=== PATIENT | male | born 1975 | race African-American/Black ===

== ENCOUNTER 2017-01-26 15:20 | Inpatient (IN) | payer OTHER ==
[~2017-01-26] VITALS: Ht 180.3 cm; Wt 116.7 kg
[~2017-01-26 15:20] MED LIST: AMLODIPINE BESY10 MG PO; AMOX TR-K CLV1 EAC3 PO; AMOX TR-K CLV1 EAC4 PO; ANTIVERT25 MG PO; ASPIR 8181 M1 PO; ATORVASTATIN CA40 MG PO; Augmentin PO; BACTRIM,SEPT1 TABLET PO; BENTYL10 MG PO; CIPRO500 MG PO; CLEOCIN150 MG PO; CLEOCIN300 MG PO; DAILY VALUE1 EACH PO; DAILY VITE1 EAC1 PO; FAMOTIDINE20 MG PO; GABAPENTIN100 MG PO; GLUCOPHAGE1000 MG PO; GRALISE600 MG PO; HUMALOG100 UNIT/1 SC; HYDROCHLOROTHIA25 MG PO; HYDROMORPHONE HC2 MG PO; INSULIN PUMP SCCONT; LANTUS 10100 UNITS/ SC; LANTUS 3 M100 UNITS1 SC; LANTUS100 UNIT/1 SQ; LEVEMIR FL100 UNITS/ SC; LISINOPRIL10 MG PO; METFORMIN HCL500 MG PO; METOPROLOL TAR100 MG PO; METRONIDAZOLE500 MG PO; MOBIC15 MG PO; MOTRIN600 MG PO; NEURONTIN100 MG PO; NICOTINE PATCH1 EAC1 TD; NICOTINE PATCH1 EAC2 TD; NORCO 5/3251 TABLET PO; NOVOLOG PE100 UNITS/ SC; OMEPRAZOLE20 MG PO; ONE DAILY TABL1 EAC1 PO; OXYCODONE HCL5 MG PO; OXYCODONE5 MG PO; PREDNISONE10 MG PO; QUESTRAN PACKET4 GM PO; ROXICET 5-3251 EACH PO; ROXICODONE5 MG PO; TRAMADOL HCL50 MG PO; VITAMIN C1000 MG PO; Vantin PO; ZOLOFT100 MG PO; ZOLPIDEM TARTRAT5 MG PO; Zithromax PO
[2017-01-26 16:13] LABS: EOSINOPHIL (%) 0 % (0-5); HEMATOCRIT 30.2 % (38.0-50.0); IMMATURE GRANULOCYTE (%) 0.9 % (0.0-0.7); IMMATURE GRANULOCYTE COUNT 1.2 K/uL; MCH 29.1 PG (29.0-34.0); MCHC 30.8 G/DL (30.0-36.0); MCV 94.4 FL (86-99); MEAN PLAT.VOLUME 10.6 uM^3 (9.0-12.4); MONOCYTE (%) 4.7 % (3-12); MONOCYTE COUNT 0.7 K/uL (0-0.8); NEUTROPHIL (%) 87.6 % (45-76); NEUTROPHIL COUNT 12.3 K/uL (1.8-6.4); PLATELET COUNT 355 K/uL (156-360); RBC DIS.WIDTH-CV 15.3 % (11.8-14.6); RBC DIS.WIDTH-SD 49.5 % (39-53); WHITE BLOOD COUNT 14.1 K/uL (4.1-10.2)
[2017-01-26 16:22] LABS: CHLORIDE 89 mEq/L (99-109); POTASSIUM 4.9 mEq/L (3.7-5.4); SODIUM 125 mEq/L (136-147)
[2017-01-26 16:25] LABS: ANION GAP 26 MEQ/L (2-14)
[2017-01-26 16:26] LABS: TOTAL BILIRUBIN 0.3 mg/dL (0.0-1.0)
[2017-01-26 16:27] LABS: ALKALINE PHOSPHATASE 105 IU/L (3-129)
[2017-01-26 16:28] LABS: GFR ESTIMATE (CALCULATED) 27 mL/min/
[2017-01-26 16:29] LABS: UREA NITROGEN (BUN) 38 mg/dL (9-23)
[2017-01-26 16:31] LABS: LIPASE 28 U/L (1.0-51.0)
[2017-01-26 16:36] LABS: TROP-I INTERPRETATION NEGATIVE; TROPONIN-I 0.02 ng/mL (0.0-0.30)
[2017-01-26 16:53] LABS: GLUCOSE 1150 mg/dL (70-99)
[2017-01-26 17:49] LABS: Estimated Average Glucose 235 mg/dL (70-123); HEMOGLOBIN A1c (GLYCOHEMOGLOB) 9.8 % HGB (Below 5.7)
[2017-01-26 18:08] LABS: ADD MIUA? YES; BILIRUBIN NEGATIVE; BLOOD MODERATE; COLOR STRAW ((YELLOW)); GLUCOSE (STRIP) >=500; KETONES 20; LEUKOCYTES NEGATIVE; NITRITE NEGATIVE; PROTEIN (STRIP) >=500; UROBILINOGEN 0.2 MG/DL (0.2-1.0)
[2017-01-26 18:23] LABS: BACTERIA RARE /HPF; EPITHELIAL CELLS RARE /HPF; MUCUS TRACE /LPF; RED BLOOD CELLS 0-5 /HPF (0-5); WHITE BLOOD CELLS 0-5 /HPF (0-5)
[2017-01-26 19:13] LABS: C DIFF TOXIN NEGATIVE (NEGATIVE)
[2017-01-26 19:26] LABS: PROBE CHECK PASS; SPECIMEN PROCESSING CONTROL PASS
[2017-01-26 20:01] LABS: GLUCOSE 983 mg/dL (70-99)
[2017-01-26 20:50] VITALS: BP 164/84
[2017-01-26 20:54] VITALS: BP 164/84
[2017-01-26 21:15] VITALS: BP 161/80
[2017-01-26 22:45] VITALS: BP 173/86
[2017-01-26 22:46] LABS: METH RESISTANT S AUREUS PCR NEGATIVE (NEGATIVE)
[2017-01-26 22:47] LABS: PROBE CHECK PASS; SPECIMEN PROCESSING CONTROL PASS
[2017-01-26 23:06] LABS: AMPHETAMINES QUANT VALUE 0 NG/ML; BARBITUATES QUANT VALUE 0 NG/ML; BENZODIAZEPINES QUANT VALUE 0 NG/ML; BENZODIAZEPINES, URINE SCREEN Negative (200 ng/mL); MARIJUANA QUANT VALUE 0 NG/ML; OPIATES QUANTITATIVE VALUE 0 NG/ML; PHENCYCLIDINE QUANT VALUE 0 NG/ML
[2017-01-26 23:12] LABS: INFLUENZA A VIRAL ANTIGEN NEGATIVE; INFLUENZA B VIRAL ANTIGEN NEGATIVE
[2017-01-26 23:28] LABS: SODIUM 130 mEq/L (136-147)
[2017-01-26 23:29] LABS: MAGNESIUM 1.8 mg/dL (1.3-2.7)
[2017-01-26 23:32] LABS: ANION GAP 14 MEQ/L (2-14)
[2017-01-26 23:34] LABS: GFR ESTIMATE (CALCULATED) 28 mL/min/
[2017-01-26 23:35] LABS: UREA NITROGEN (BUN) 39 mg/dL (9-23)
[2017-01-26 23:36] LABS: CHLORIDE 98 mEq/L (99-109); GLUCOSE 767 mg/dL (70-99)
[2017-01-26 23:39] LABS: TROP-I INTERPRETATION NEGATIVE; TROPONIN-I 0.06 ng/mL (0.0-0.30)
[2017-01-26 23:40] VITALS: BP 154/72
[2017-01-27] VITALS (13 sets, daily range): BP systolic 126–172; BP diastolic 68–90
[2017-01-27 04:29] LABS: EOSINOPHIL (%) 1.3 % (0-5); EOSINOPHIL COUNT 0.2 K/uL (0-0.3); HEMATOCRIT 24.3 % (38.0-50.0); IMMATURE GRANULOCYTE (%) 0.2 % (0.0-0.7); IMMATURE GRANULOCYTE COUNT 0.3 K/uL; LYMPHOCYTE COUNT 1.2 K/uL (1.0-2.8); MCH 29.1 PG (29.0-34.0); MCHC 33.7 G/DL (30.0-36.0); MEAN PLAT.VOLUME 9.8 uM^3 (9.0-12.4); MONOCYTE (%) 6.2 % (3-12); NEUTROPHIL (%) 84.2 % (45-76); NEUTROPHIL COUNT 13.1 K/uL (1.8-6.4); PLATELET COUNT 323 K/uL (156-360); RBC DIS.WIDTH-SD 42.8 % (39-53); RED BLOOD COUNT 2.82 M/uL (4.00-5.50); WHITE BLOOD COUNT 15.6 K/uL (4.1-10.2)
[2017-01-27 04:33] LABS: MCV 86.2 FL (86-99)
[2017-01-27 04:40] LABS: CHLORIDE 103 mEq/L (99-109); POTASSIUM 3.7 mEq/L (3.7-5.4)
[2017-01-27 04:41] LABS: SODIUM 136 mEq/L (136-147)
[2017-01-27 04:42] LABS: GLUCOSE 392 mg/dL (70-99)
[2017-01-27 04:44] LABS: ANION GAP 10 MEQ/L (2-14)
[2017-01-27 04:46] LABS: GFR ESTIMATE (CALCULATED) 28 mL/min/
[2017-01-27 04:47] LABS: UREA NITROGEN (BUN) 38 mg/dL (9-23)
[2017-01-27 05:20] LABS: POINT-OF-CARE METER ID UU14162636
[2017-01-27 06:21] LABS: POINT-OF-CARE METER ID UU14162636
[2017-01-27 06:54] LABS: POINT-OF-CARE METER ID UU14162636
[2017-01-27 08:17] LABS: INTERNAL CONTROL VALID? YES
[2017-01-27 08:48] LABS: ANION GAP 8 MEQ/L (2-14); CHLORIDE 103 MEQ/L (99-109); POTASSIUM 3.7 MEQ/L (3.7-5.4); SAMPLE HEMOLYSIS CHECK 0; SAMPLE ICTERIC CHECK 0; SAMPLE LIPEMIA CHECK 0; SODIUM 137 MEQ/L (136-147)
[2017-01-27 08:54] LABS: GFR ESTIMATE (CALCULATED) 30 mL/min/; UREA NITROGEN (BUN) 36 mg/dL (9-23)
[2017-01-27 09:07] LABS: GLUCOSE 147 mg/dL (70-99)
[2017-01-27 09:25] LABS: POINT-OF-CARE METER ID UU13113803
[2017-01-27 09:25] LABS: POINT-OF-CARE METER ID UU14162636
[2017-01-27 09:25] LABS: POINT-OF-CARE METER ID UU14162636
[2017-01-27 09:32] LABS: POINT-OF-CARE METER ID UU14100415; POINT-OF-CARE USER ID PUTMLD10
[2017-01-27 12:05] LABS: POINT-OF-CARE METER ID UU13113748
[2017-01-27 12:49] LABS: HEMATOCRIT 24.7 % (38.0-50.0); MCV 86.7 FL (86-99)
[2017-01-27 13:07] LABS: ANION GAP 11 MEQ/L (2-14); CHLORIDE 102 MEQ/L (99-109); SAMPLE HEMOLYSIS CHECK 0; SAMPLE ICTERIC CHECK 0; SAMPLE LIPEMIA CHECK 0; SODIUM 137 MEQ/L (136-147)
[2017-01-27 13:12] LABS: GFR ESTIMATE (CALCULATED) 31 mL/min/; GLUCOSE 212 mg/dL (70-99); UREA NITROGEN (BUN) 34 mg/dL (9-23)
[2017-01-27 13:19] LABS: POINT-OF-CARE METER ID UU13113748
[2017-01-27 15:25] LABS: POINT-OF-CARE METER ID UU13113748
[2017-01-27 16:33] LABS: ANION GAP 11 MEQ/L (2-14); CHLORIDE 101 MEQ/L (99-109); GFR ESTIMATE (CALCULATED) 31 mL/min/; SAMPLE HEMOLYSIS CHECK 0; SAMPLE ICTERIC CHECK 0; SAMPLE LIPEMIA CHECK 0; SODIUM 135 MEQ/L (136-147); UREA NITROGEN (BUN) 35 mg/dL (9-23)
[2017-01-27 16:38] LABS: GLUCOSE 328 mg/dL (70-99)
[2017-01-27 20:37] LABS: ANION GAP 10 MEQ/L (2-14); CHLORIDE 103 MEQ/L (99-109); GFR ESTIMATE (CALCULATED) 29 mL/min/; GLUCOSE 297 mg/dL (70-99); POTASSIUM 3.9 MEQ/L (3.7-5.4); SAMPLE HEMOLYSIS CHECK 0; SAMPLE ICTERIC CHECK 0; SAMPLE LIPEMIA CHECK 0; SODIUM 134 MEQ/L (136-147); UREA NITROGEN (BUN) 36 mg/dL (9-23)
[2017-01-27 22:21] LABS: POINT-OF-CARE METER ID UU14149397
[2017-01-28] VITALS: BP 159/78
[2017-01-28 04:33] VITALS: BP 123/71
[2017-01-28 06:47] LABS: POINT-OF-CARE METER ID UU14149397
[2017-01-28 08:00] VITALS: BP 124/70
[2017-01-28 12:34] LABS: HEMATOCRIT 25.5 % (38.0-50.0); MCHC 32.9 G/DL (30.0-36.0); MCV 87.9 FL (86-99); MEAN PLAT.VOLUME 10.5 uM^3 (9.0-12.4); PLATELET COUNT 301 K/uL (156-360); RBC DIS.WIDTH-CV 14.9 % (11.8-14.6); RBC DIS.WIDTH-SD 48.1 % (39-53); WHITE BLOOD COUNT 10.8 K/uL (4.1-10.2)
[2017-01-28 12:55] LABS: ANION GAP 8 MEQ/L (2-14); CHLORIDE 104 MEQ/L (99-109); GFR ESTIMATE (CALCULATED) 30 mL/min/; GLUCOSE 215 mg/dL (70-99); HDL CHOLESTEROL 45 MG/DL (Desirable>=40); LDL CHOLESTEROL 73 mg/dL (Desirable<100); NON-HDL CHOLESTEROL 98 mg/dL (Desirable<160); POTASSIUM 3.9 MEQ/L (3.7-5.4); SAMPLE HEMOLYSIS CHECK 0; SAMPLE ICTERIC CHECK 0; SAMPLE LIPEMIA CHECK 0; SODIUM 138 MEQ/L (136-147); TOTAL CHOLESTEROL 143 mg/dL (Desirable<200); TRIGLYCERIDES 126 MG/DL (Normal: <150); UREA NITROGEN (BUN) 35 mg/dL (9-23)
[2017-01-28 15:45] VITALS: BP 133/69
[2017-01-28 19:59] VITALS: BP 161/78
[2017-01-28 21:45] LABS: POINT-OF-CARE METER ID UU14188577
[2017-01-29 00:23] VITALS: BP 167/84
[2017-01-29 04:13] VITALS: BP 190/98
[2017-01-29 06:03] LABS: ABSOLUTE RETICULOCYTE CT. 0.06 M/uL (0.02-0.08); EOSINOPHIL (%) 3.3 % (0-5); EOSINOPHIL COUNT 0.3 K/uL (0-0.3); HEMATOCRIT 25.4 % (38.0-50.0); IMM.RETIC FRACTION 7.2 % (3-19); IMMATURE GRANULOCYTE (%) 0.2 % (0.0-0.7); MCH 28.8 PG (29.0-34.0); MCHC 32.3 G/DL (30.0-36.0); MCV 89.1 FL (86-99); MEAN PLAT.VOLUME 10.4 uM^3 (9.0-12.4); MONOCYTE COUNT 0.7 K/uL (0-0.8); NEUTROPHIL (%) 67.9 % (45-76); NEUTROPHIL COUNT 6.4 K/uL (1.8-6.4); PLATELET COUNT 273 K/uL (156-360); RBC DIS.WIDTH-CV 15.2 % (11.8-14.6); RBC DIS.WIDTH-SD 49.7 % (39-53); RED BLOOD COUNT 2.85 M/uL (4.00-5.50); RETICULOCYTE COUNT 2.2 % (0.5-1.8); WHITE BLOOD COUNT 9.4 K/uL (4.1-10.2)
[2017-01-29 06:37] LABS: ANION GAP 7 MEQ/L (2-14); CHLORIDE 104 MEQ/L (99-109); GFR ESTIMATE (CALCULATED) 32 mL/min/; GLUCOSE 208 mg/dL (70-99); IRON 36 MCG/DL (35-150); POTASSIUM 3.7 MEQ/L (3.7-5.4); SAMPLE HEMOLYSIS CHECK 0; SAMPLE ICTERIC CHECK 0; SAMPLE LIPEMIA CHECK 0; SODIUM 137 MEQ/L (136-147); UREA NITROGEN (BUN) 33 mg/dL (9-23)
[2017-01-29 06:52] LABS: POINT-OF-CARE METER ID UU14149397
[2017-01-29 08:09] LABS: INTACT PARATHYROID HORMONE 99 pg/mL (10-69)
[2017-01-29 08:57] LABS: INTERNAL CONTROL VALID? YES
[2017-01-29 10:02] VITALS: BP 192/107
[2017-01-29 11:40] VITALS: BP 183/95
[2017-01-29 11:54] LABS: POINT-OF-CARE METER ID UU14188577
[2017-01-29 16:10] VITALS: BP 170/84
[2017-01-29 16:36] LABS: POINT-OF-CARE METER ID UU14149397
[2017-01-29 22:12] LABS: POINT-OF-CARE METER ID UU14149397
[2017-01-30] VITALS (7 sets, daily range): BP systolic 148–199; BP diastolic 68–96
[2017-01-30 05:40] LABS: EOSINOPHIL (%) 2.8 % (0-5); EOSINOPHIL COUNT 0.2 K/uL (0-0.3); HEMATOCRIT 26.9 % (38.0-50.0); IMMATURE GRANULOCYTE (%) 0.2 % (0.0-0.7); LYMPHOCYTE COUNT 1.7 K/uL (1.0-2.8); MCH 29.9 PG (29.0-34.0); MCHC 33.1 G/DL (30.0-36.0); MCV 90.3 FL (86-99); MEAN PLAT.VOLUME 10.4 uM^3 (9.0-12.4); MONOCYTE (%) 8.8 % (3-12); MONOCYTE COUNT 0.7 K/uL (0-0.8); NEUTROPHIL (%) 67.1 % (45-76); NEUTROPHIL COUNT 5.6 K/uL (1.8-6.4); PLATELET COUNT 278 K/uL (156-360); RBC DIS.WIDTH-CV 15.2 % (11.8-14.6); RBC DIS.WIDTH-SD 49.9 % (39-53); RED BLOOD COUNT 2.98 M/uL (4.00-5.50); WHITE BLOOD COUNT 8.3 K/uL (4.1-10.2)
[2017-01-30 06:04] LABS: ANION GAP 7 MEQ/L (2-14); CHLORIDE 104 MEQ/L (99-109); GFR ESTIMATE (CALCULATED) 39 mL/min/; GLUCOSE 240 mg/dL (70-99); POTASSIUM 3.8 MEQ/L (3.7-5.4); SAMPLE HEMOLYSIS CHECK 0; SAMPLE ICTERIC CHECK 0; SAMPLE LIPEMIA CHECK 0; SODIUM 140 MEQ/L (136-147); UREA NITROGEN (BUN) 28 mg/dL (9-23)
[2017-01-30 14:53] LABS: POINT-OF-CARE METER ID UU14149397
[2017-01-30 15:54] LABS: POINT-OF-CARE METER ID UU14149397
[2017-01-30 16:45] LABS: POINT-OF-CARE METER ID UU14149397
[2017-01-31 06:09] LABS: EOSINOPHIL COUNT 0.2 K/uL (0-0.3); HEMATOCRIT 26.7 % (38.0-50.0); IMMATURE GRANULOCYTE (%) 0.4 % (0.0-0.7); LYMPHOCYTE COUNT 2.3 K/uL (1.0-2.8); MCH 28.5 PG (29.0-34.0); MCHC 31.8 G/DL (30.0-36.0); MCV 89.6 FL (86-99); MEAN PLAT.VOLUME 10.5 uM^3 (9.0-12.4); MONOCYTE (%) 7.4 % (3-12); MONOCYTE COUNT 0.6 K/uL (0-0.8); NEUTROPHIL (%) 57.7 % (45-76); NEUTROPHIL COUNT 4.3 K/uL (1.8-6.4); PLATELET COUNT 293 K/uL (156-360); RBC DIS.WIDTH-CV 15.4 % (11.8-14.6); RBC DIS.WIDTH-SD 50.4 % (39-53); RED BLOOD COUNT 2.98 M/uL (4.00-5.50); WHITE BLOOD COUNT 7.4 K/uL (4.1-10.2)
[2017-01-31 06:28] LABS: ANION GAP 7 MEQ/L (2-14); CHLORIDE 104 MEQ/L (99-109); GFR ESTIMATE (CALCULATED) 39 mL/min/; GLUCOSE 151 mg/dL (70-99); POTASSIUM 3.9 MEQ/L (3.7-5.4); SAMPLE HEMOLYSIS CHECK 0; SAMPLE ICTERIC CHECK 0; SAMPLE LIPEMIA CHECK 0; SODIUM 141 MEQ/L (136-147); UREA NITROGEN (BUN) 25 mg/dL (9-23)
[2017-01-31 07:07] LABS: POINT-OF-CARE METER ID UU14188577
[2017-01-31 08:21] VITALS: BP 184/95
[2017-01-31 15:46] VITALS: BP 220/96
[2017-01-31 15:47] VITALS: BP 188/90
[2017-01-31 15:57] VITALS: BP 188/90
[2017-01-31 17:29] LABS: POINT-OF-CARE METER ID UU13113675; POINT-OF-CARE USER ID 515036437
[2017-01-31 18:48] LABS: UR CREATININE CONCENTRATION 39.8 MG/DL
[2017-01-31 20:01] VITALS: BP 162/82
[2017-01-31 22:15] LABS: POINT-OF-CARE METER ID UU14149397
[2017-02-01 00:29] VITALS: BP 116/60
[2017-02-01 04:08] VITALS: BP 116/75
[2017-02-01 05:38] LABS: HEMATOCRIT 24.9 % (38.0-50.0); MCHC 32.1 G/DL (30.0-36.0); MCV 90.2 FL (86-99); MEAN PLAT.VOLUME 10.5 uM^3 (9.0-12.4); PLATELET COUNT 301 K/uL (156-360); RBC DIS.WIDTH-CV 15.5 % (11.8-14.6); RBC DIS.WIDTH-SD 50.4 % (39-53); RED BLOOD COUNT 2.76 M/uL (4.00-5.50); WHITE BLOOD COUNT 8.9 K/uL (4.1-10.2)
[2017-02-01 06:13] LABS: ANION GAP 7 MEQ/L (2-14); CHLORIDE 103 MEQ/L (99-109); GFR ESTIMATE (CALCULATED) 35 mL/min/; POTASSIUM 4.1 MEQ/L (3.7-5.4); SAMPLE HEMOLYSIS CHECK 0; SAMPLE ICTERIC CHECK 0; SAMPLE LIPEMIA CHECK 0; SODIUM 138 MEQ/L (136-147); UREA NITROGEN (BUN) 28 mg/dL (9-23)
[2017-02-01 06:14] LABS: GLUCOSE 375 mg/dL (70-99)
[2017-02-01 08:17] VITALS: BP 156/81
[2017-02-01 10:54] LABS: POINT-OF-CARE METER ID UU14188577
[2017-02-01 11:41] VITALS: BP 172/91
[2017-02-01 16:39] VITALS: BP 129/70
[2017-02-01 23:19] LABS: POINT-OF-CARE METER ID UU14188577
[2017-02-01 23:31] VITALS: BP 162/90
[2017-02-02 05:30] LABS: HEMATOCRIT 25.1 % (38.0-50.0); MCH 28.3 PG (29.0-34.0); MCHC 31.5 G/DL (30.0-36.0); MEAN PLAT.VOLUME 10.5 uM^3 (9.0-12.4); PLATELET COUNT 320 K/uL (156-360); RBC DIS.WIDTH-CV 15.5 % (11.8-14.6); RBC DIS.WIDTH-SD 50.7 % (39-53); RED BLOOD COUNT 2.79 M/uL (4.00-5.50); WHITE BLOOD COUNT 8.4 K/uL (4.1-10.2)
[2017-02-02 05:53] LABS: ANION GAP 6 MEQ/L (2-14); ANION GAP 8 MEQ/L (2-14); CHLORIDE 102 MEQ/L (99-109); GFR ESTIMATE (CALCULATED) 34 mL/min/; GLUCOSE 262 mg/dL (70-99); GLUCOSE 268 mg/dL (70-99); POTASSIUM 3.8 MEQ/L (3.7-5.4); SAMPLE HEMOLYSIS CHECK 0; SAMPLE ICTERIC CHECK 0; SAMPLE LIPEMIA CHECK 0; SODIUM 135 MEQ/L (136-147); SODIUM 137 MEQ/L (136-147); UREA NITROGEN (BUN) 28 mg/dL (9-23); UREA NITROGEN (BUN) 29 mg/dL (9-23)
[2017-02-02 08:13] VITALS: BP 180/100
[2017-02-02 09:35] VITALS: BP 174/80
[2017-02-02 11:55] LABS: POINT-OF-CARE METER ID UU14149397
[2017-02-02 17:03] VITALS: BP 139/70
[2017-02-02 21:52] LABS: POINT-OF-CARE METER ID UU14149397
[2017-02-03 00:15] VITALS: BP 143/67
[2017-02-03 06:46] LABS: ANION GAP 7 MEQ/L (2-14); CHLORIDE 105 MEQ/L (99-109); GFR ESTIMATE (CALCULATED) 39 mL/min/; POTASSIUM 3.4 MEQ/L (3.7-5.4); SAMPLE HEMOLYSIS CHECK 0; SAMPLE ICTERIC CHECK 0; SAMPLE LIPEMIA CHECK 0; SODIUM 139 MEQ/L (136-147); UREA NITROGEN (BUN) 25 mg/dL (9-23)
[2017-02-03 06:58] LABS: GLUCOSE 133 mg/dL (70-99)
[2017-02-03 08:14] VITALS: BP 176/94
[2017-02-03 08:43] LABS: HEMATOCRIT 26.4 % (38.0-50.0); MCHC 31.8 G/DL (30.0-36.0); MEAN PLAT.VOLUME 10.3 uM^3 (9.0-12.4); PLATELET COUNT 330 K/uL (156-360); RBC DIS.WIDTH-CV 15.5 % (11.8-14.6); RBC DIS.WIDTH-SD 51.1 % (39-53); WHITE BLOOD COUNT 6.7 K/uL (4.1-10.2)
[2017-02-03 11:45] LABS: POINT-OF-CARE METER ID UU14149397; POINT-OF-CARE USER ID BHSLRM
[2017-02-03 11:58] LABS: UR CREATININE CONCENTRATION 74.9 MG/DL
[2017-02-03 14:53] VITALS: BP 160/74
[2017-02-03 17:33] LABS: POINT-OF-CARE METER ID UU14149397
[2017-02-03 22:37] LABS: POINT-OF-CARE METER ID UU14149397
[2017-02-03 23:49] VITALS: BP 135/78
[2017-02-04 06:38] LABS: ANION GAP 6 MEQ/L (2-14); CHLORIDE 102 MEQ/L (99-109); GFR ESTIMATE (CALCULATED) 39 mL/min/; GLUCOSE 119 mg/dL (70-99); POTASSIUM 3.6 MEQ/L (3.7-5.4); SAMPLE HEMOLYSIS CHECK 0; SAMPLE ICTERIC CHECK 0; SAMPLE LIPEMIA CHECK 0; SODIUM 138 MEQ/L (136-147); UREA NITROGEN (BUN) 27 mg/dL (9-23)
[2017-02-04 06:51] LABS: POINT-OF-CARE METER ID UU14188577
[2017-02-04 07:06] VITALS: BP 138/73
[2017-02-04 08:32] LABS: HEMATOCRIT 25.4 % (38.0-50.0); MCH 29.5 PG (29.0-34.0); MCHC 32.3 G/DL (30.0-36.0); MCV 91.4 FL (86-99); MEAN PLAT.VOLUME 10.4 uM^3 (9.0-12.4); PLATELET COUNT 355 K/uL (156-360); RBC DIS.WIDTH-CV 15.6 % (11.8-14.6); RBC DIS.WIDTH-SD 52.3 % (39-53); RED BLOOD COUNT 2.78 M/uL (4.00-5.50); WHITE BLOOD COUNT 6.9 K/uL (4.1-10.2)
[2017-02-04 12:02] LABS: POINT-OF-CARE METER ID UU14149397
[2017-02-04 17:02] LABS: POINT-OF-CARE METER ID UU14149397
[2017-02-05 00:13] VITALS: BP 157/83
[2017-02-05 06:43] LABS: ANION GAP 7 MEQ/L (2-14); CHLORIDE 100 MEQ/L (99-109); GFR ESTIMATE (CALCULATED) 41 mL/min/; POTASSIUM 4.2 MEQ/L (3.7-5.4); SAMPLE HEMOLYSIS CHECK 0; SAMPLE ICTERIC CHECK 0; SAMPLE LIPEMIA CHECK 0; SODIUM 136 MEQ/L (136-147); UREA NITROGEN (BUN) 27 mg/dL (9-23)
[2017-02-05 06:45] LABS: GLUCOSE 269 mg/dL (70-99)
[2017-02-05 07:12] LABS: POINT-OF-CARE METER ID UU14149397
[2017-02-05 08:42] VITALS: BP 173/87
[2017-02-05] MEDS ORDERED: SORE THROAT LO1 EAC3 MM (13:09)
[2017-02-05] MEDS ORDERED: CARVEDILOL12.5 MG PO (13:42)
[2017-02-05] MEDS ORDERED: OXYCODONE-APAP1 EACH PO (13:42)
[2017-02-05] MEDS ORDERED: ENDOCET 5-3251 EACH PO (13:42)
[2017-02-05] MEDS ORDERED: Procardia XL,Adalat PO (13:42)
[2017-02-05] MEDS ORDERED: VENTOLIN HFA18 GM IH (13:42)
[2017-02-05] MEDS ORDERED: PREDNISONE10 MG PO (13:42)
[2017-02-05] MEDS ORDERED: NICOTINE PATCH1 EAC2 TD (13:45)
[2017-02-05 16:37] VITALS: BP 140/77
[2017-02-05 23:45] VITALS: BP 132/60
[2017-02-06 06:15] LABS: ANION GAP 7 MEQ/L (2-14); CHLORIDE 97 MEQ/L (99-109); GFR ESTIMATE (CALCULATED) 37 mL/min/; GLUCOSE 358 mg/dL (70-99); POTASSIUM 3.9 MEQ/L (3.7-5.4); SAMPLE HEMOLYSIS CHECK 0; SAMPLE ICTERIC CHECK 0; SAMPLE LIPEMIA CHECK 0; SODIUM 132 MEQ/L (136-147); UREA NITROGEN (BUN) 34 mg/dL (9-23)
[2017-02-06 06:20] LABS: POINT-OF-CARE METER ID UU14149397
[2017-02-06 07:59] VITALS: BP 107/58
[2017-02-06 10:31] LABS: HEMATOCRIT 27.2 % (38.0-50.0); MCH 28.8 PG (29.0-34.0); MCHC 31.6 G/DL (30.0-36.0); PLATELET COUNT 346 K/uL (156-360); RBC DIS.WIDTH-CV 15.7 % (11.8-14.6); RBC DIS.WIDTH-SD 51.8 % (39-53); RED BLOOD COUNT 2.99 M/uL (4.00-5.50)
[2017-02-06 10:41] LABS: WHITE BLOOD COUNT 11.1 K/uL (4.1-10.2)
[2017-02-06 11:34] LABS: ANION GAP 11 MEQ/L (2-14); CHLORIDE 97 MEQ/L (99-109); GFR ESTIMATE (CALCULATED) 32 mL/min/; POTASSIUM 3.9 MEQ/L (3.7-5.4); SAMPLE HEMOLYSIS CHECK 0; SAMPLE ICTERIC CHECK 0; SAMPLE LIPEMIA CHECK 0; SODIUM 133 MEQ/L (136-147); UREA NITROGEN (BUN) 36 mg/dL (9-23)
[2017-02-06 11:37] LABS: GLUCOSE 412 mg/dL (70-99)
[2017-02-06 11:53] LABS: POINT-OF-CARE METER ID UU14188577
[2017-02-06] MEDS ORDERED: LISINOPRIL20 MG PO (13:39)
[2017-02-06] MEDS ORDERED: METOCLOPRAMIDE H5 MG PO (13:39)
[2017-02-06] MEDS ORDERED: ERGOCALCIF50000 UNIT PO (13:39)
[2017-02-06] MEDS ORDERED: ADVAIR HFA120 INHALA IH (13:39)
[2017-02-06] MEDS ORDERED: MUCINEX600 MG PO (13:39)
[2017-02-06] MEDS ORDERED: PANTOPRAZOLE SO40 MG PO (13:39)
[2017-02-06] MEDS ORDERED: FUROSEMIDE80 MG PO (13:39)
[2017-02-06] MEDS ORDERED: HYDROCHLOROTHIA25 MG PO (13:39)
[2017-02-08 16:57] LABS: ADRENOCORTICOTROPIC HORMONE+ <5 pg/mL (6-50)
[2017-02-09 20:36] LABS: CHROMOGRANIN A 143 ng/mL (< OR = 15)
== END 2017-02-06 15:59 | disposition home or self-care (01) | DRG 628 ==
LOC: EME 15:20 → EDOF 18:06 → 3EAST 18:06 → 4WEST 18:06 → 3EAST 01-27 19:45
PROVIDERS: Emergency Medicine; Hospitalist; Internal Medicine; Internal Medicine Hematology & Oncology; Internal Medicine Nephrology; Obstetrics & Gynecology; Physician Assistant
DX: E10.10 Type 1 diabetes mellitus with ketoacidosis without coma (principal); J18.9 Pneumonia, unspecified organism; J90 Pleural effusion, not elsewhere classified; L97.409 Non-pressure chronic ulcer of unspecified heel and midfoot with unspecified severity; N17.9 Acute kidney failure, unspecified; J44.1 Chronic obstructive pulmonary disease with (acute) exacerbation; N18.3 Chronic kidney disease, stage 3 (moderate); E83.51 Hypocalcemia; I27.2 Other secondary pulmonary hypertension; E88.09 Other disorders of plasma-protein metabolism, not elsewhere classified; G47.33 Obstructive sleep apnea (adult) (pediatric); I12.9 Hypertensive chronic kidney disease with stage 1 through stage 4 chronic kidney disease, or unspecified chronic kidney disease; E66.01 Morbid (severe) obesity due to excess calories; K31.84 Gastroparesis; D50.9 Iron deficiency anemia, unspecified; R51 Headache; G89.29 Other chronic pain; E10.40 Type 1 diabetes mellitus with diabetic neuropathy, unspecified; F32.9 Major depressive disorder, single episode, unspecified; K21.9 Gastro-esophageal reflux disease without esophagitis; M54.9 Dorsalgia, unspecified; E83.39 Other disorders of phosphorus metabolism; T36.95XA Adverse effect of unspecified systemic antibiotic, initial encounter; E87.8 Other disorders of electrolyte and fluid balance, not elsewhere classified; E78.5 Hyperlipidemia, unspecified; R19.7 Diarrhea, unspecified; E10.21 Type 1 diabetes mellitus with diabetic nephropathy; E10.621 Type 1 diabetes mellitus with foot ulcer; E10.22 Type 1 diabetes mellitus with diabetic chronic kidney disease; Z87.891 Personal history of nicotine dependence; Z91.19 Patient's noncompliance with other medical treatment and regimen; Z79.4 Long term (current) use of insulin; Z68.35 Body mass index [BMI] 35.0-35.9, adult; E55.9 Vitamin D deficiency, unspecified
CPT/HCPCS: 36600; 71010; 71020; 71250; 76770; 78582; 80048; 80048 91; 80053; 80061; 80069; 80306 90; 81003; 81050; 82010; 82024 90; 82272; 82306; 82570; 82575; 82607; 82746; 82803; 82948; 83036; 83540; 83605; 83690; 83735; 83970; 84100; 84156; 84466; 84484; 84999; 85014; 85018; 85025; 85027; 85045; 86316 90; 87040; 87070; 87205; 87449; 87493; 87502; 87506; 87641; 88108; 88173; 88305; 88341 TC; 88342 TC; 93005; 93306; 93308; 93970; 93975; 94640; 94640 76; 94660; 94667; 94668; 94799; 99202; 99281; 99285; A9540; A9567; C9113; J0171; J0330; J0360; J0881; J1170; J1756; J1815; J1956; J2250; J2270; J2405; J2543; J2765; J3010; J7030; J7050; J7120; J7512

== ENCOUNTER → 2017-02-13 | Outpatient (CLI) | payer OTHER ==
[~2017-02-13] MED LIST changes: +ADVAIR HFA120 INHALA IH; +CARVEDILOL12.5 MG PO; +ENDOCET 5-3251 EACH PO; +ERGOCALCIF50000 UNIT PO; +FUROSEMIDE80 MG PO; +LISINOPRIL20 MG PO; +METOCLOPRAMIDE H5 MG PO; +MUCINEX600 MG PO; +OXYCODONE-APAP1 EACH PO; +PANTOPRAZOLE SO40 MG PO; +Procardia XL,Adalat PO; +SORE THROAT LO1 EAC3 MM; +VENTOLIN HFA18 GM IH
== END | disposition home or self-care (01) ==
LOC: NUC 07:56
DX: D3A.090 Benign carcinoid tumor of the bronchus and lung (principal)
CPT/HCPCS: 78804; 78999; A9572

== ENCOUNTER 2017-02-18 11:49 | Emergency (ER) | payer OTHER ==
[~2017-02-18] VITALS: Ht 177.8 cm; Wt 125.6 kg
[2017-02-18 12:24] LABS: HEMATOCRIT 29.7 % (38.0-50.0); MCH 29.6 PG (29.0-34.0); MCHC 32.3 G/DL (30.0-36.0); MCV 91.7 FL (86-99); MEAN PLAT.VOLUME 10.3 uM^3 (9.0-12.4); PLATELET COUNT 285 K/uL (156-360); RBC DIS.WIDTH-CV 16.1 % (11.8-14.6); RED BLOOD COUNT 3.24 M/uL (4.00-5.50); WHITE BLOOD COUNT 9.1 K/uL (4.1-10.2)
[2017-02-18 12:38] LABS: CHLORIDE 103 mEq/L (99-109); POTASSIUM 4.2 mEq/L (3.7-5.4); SODIUM 139 mEq/L (136-147)
[2017-02-18 12:40] LABS: GLUCOSE 95 mg/dL (70-99)
[2017-02-18 12:41] LABS: ANION GAP 11 MEQ/L (2-14)
[2017-02-18 12:42] LABS: TOTAL BILIRUBIN 0.2 mg/dL (0.0-1.0)
[2017-02-18 12:43] LABS: ALKALINE PHOSPHATASE 85 IU/L (3-129)
[2017-02-18 12:44] LABS: GFR ESTIMATE (CALCULATED) 35 mL/min/
[2017-02-18 12:45] LABS: UREA NITROGEN (BUN) 44 mg/dL (9-23)
[2017-02-18 14:17] LABS: ADD MIUA? YES; BILIRUBIN NEGATIVE; BLOOD NEGATIVE; COLOR YELLOW ((YELLOW)); GLUCOSE (STRIP) NEGATIVE; KETONES NEGATIVE; LEUKOCYTES NEGATIVE; NITRITE NEGATIVE; PROTEIN (STRIP) >=500; UROBILINOGEN 0.2 MG/DL (0.2-1.0)
[2017-02-18 14:28] LABS: BACTERIA NONE SEEN /HPF; EPITHELIAL CELLS RARE /HPF; GRANULAR CASTS 0-5 /LPF; MUCUS TRACE /LPF; RED BLOOD CELLS 0-5 /HPF (0-5); UCUL ADDED? NO; WHITE BLOOD CELLS 0-5 /HPF (0-5)
[2017-02-18 17:30] VITALS: BP 134/77
== END 2017-02-18 17:42 | disposition home or self-care (01) ==
LOC: EME 11:49
DX: R51 Headache (principal); R10.9 Unspecified abdominal pain; R06.00 Dyspnea, unspecified; R42 Dizziness and giddiness; E11.9 Type 2 diabetes mellitus without complications; Z96.41 Presence of insulin pump (external) (internal); Z79.4 Long term (current) use of insulin; C34.90 Malignant neoplasm of unspecified part of unspecified bronchus or lung; Z87.891 Personal history of nicotine dependence
CPT/HCPCS: 70450; 71020; 74176; 78582; 80053; 81003; 85027; 99281; 99285; A9540; A9567; J1200; J2765; J7030

== ENCOUNTER → 2017-03-15 | Outpatient (CLI) | payer OTHER | END | disposition home or self-care (01) | LOC: RAD 10:30 | DX: J98.11 Atelectasis (principal); J98.09 Other diseases of bronchus, not elsewhere classified | CPT/HCPCS: 71250; 74176 ==

== ENCOUNTER 2017-04-04 10:30 | Emergency (ER) | payer OTHER ==
[~2017-04-04] VITALS: Ht 180.3 cm; Wt 111.3 kg
[2017-04-04 11:33] LABS: HEMATOCRIT 36.5 % (38.0-50.0); MCH 28.2 PG (29.0-34.0); MCHC 32.9 G/DL (30.0-36.0); MCV 85.9 FL (86-99); MEAN PLAT.VOLUME 10.3 uM^3 (9.0-12.4); PLATELET COUNT 310 K/uL (156-360); RBC DIS.WIDTH-CV 14.3 % (11.8-14.6); RBC DIS.WIDTH-SD 44.8 % (39-53); RED BLOOD COUNT 4.25 M/uL (4.00-5.50)
[2017-04-04 11:35] LABS: CARBON DIOXIDE (BICARBONATE) 36.6 MEQ/L (20-31)
[2017-04-04 11:37] LABS: POINT-OF-CARE METER ID UU14100415
[2017-04-04 11:39] LABS: WHITE BLOOD COUNT 9.5 K/uL (4.1-10.2)
[2017-04-04 11:49] LABS: CHLORIDE 101 mEq/L (99-109); POTASSIUM 3.5 mEq/L (3.7-5.4); SODIUM 141 mEq/L (136-147)
[2017-04-04 11:50] LABS: GLUCOSE 156 mg/dL (70-99)
[2017-04-04 11:52] LABS: ANION GAP 12 MEQ/L (2-14)
[2017-04-04 11:54] LABS: GFR ESTIMATE (CALCULATED) 35 mL/min/
[2017-04-04 11:55] LABS: UREA NITROGEN (BUN) 44 mg/dL (9-23)
[2017-04-04 12:00] LABS: TROP-I INTERPRETATION NEGATIVE; TROPONIN-I < 0.01 ng/mL (0.0-0.30)
[2017-04-04 13:54] LABS: ADD MIUA? YES; BILIRUBIN NEGATIVE; BLOOD SMALL; COLOR STRAW ((YELLOW)); GLUCOSE (STRIP) 50; KETONES NEGATIVE; LEUKOCYTES NEGATIVE; NITRITE NEGATIVE; PROTEIN (STRIP) >=500; UROBILINOGEN 0.2 MG/DL (0.2-1.0)
[2017-04-04 13:58] LABS: BACTERIA NONE SEEN /HPF; EPITHELIAL CELLS NONE SEEN /HPF; MUCUS TRACE /LPF; UCUL ADDED? NO; WHITE BLOOD CELLS 0-5 /HPF (0-5)
[2017-04-04] MEDS ORDERED: ZOFRAN4 MG PO (15:02)
[2017-04-04 15:16] VITALS: BP 154/98
== END 2017-04-04 15:17 | disposition home or self-care (01) ==
LOC: EME 10:30
PROVIDERS: Emergency Medicine
DX: R11.10 Vomiting, unspecified (principal); I12.9 Hypertensive chronic kidney disease with stage 1 through stage 4 chronic kidney disease, or unspecified chronic kidney disease; N18.9 Chronic kidney disease, unspecified; R19.7 Diarrhea, unspecified; E11.9 Type 2 diabetes mellitus without complications; Z96.41 Presence of insulin pump (external) (internal); K21.9 Gastro-esophageal reflux disease without esophagitis; Z86.61 Personal history of infections of the central nervous system; Z85.118 Personal history of other malignant neoplasm of bronchus and lung; Z87.891 Personal history of nicotine dependence
CPT/HCPCS: 71020; 80048; 81003; 82010; 82803; 82948; 84484; 85027; 93005; 99281; 99285; J2405; J7030

== ENCOUNTER 2017-04-20 03:50 | Inpatient (IN) | payer OTHER ==
[~2017-04-20] VITALS: Ht 180.3 cm; Wt 112.4 kg
[~2017-04-20 03:50] MED LIST changes: +ZOFRAN4 MG PO
[2017-04-20 05:04] LABS: HEMATOCRIT 32.2 % (38.0-50.0); MCH 29.1 PG (29.0-34.0); MCHC 33.9 G/DL (30.0-36.0); MCV 86.1 FL (86-99); MEAN PLAT.VOLUME 10.4 uM^3 (9.0-12.4); PLATELET COUNT 238 K/uL (156-360); RBC DIS.WIDTH-CV 14.6 % (11.8-14.6); RBC DIS.WIDTH-SD 45.8 % (39-53); RED BLOOD COUNT 3.74 M/uL (4.00-5.50); WHITE BLOOD COUNT 8.2 K/uL (4.1-10.2)
[2017-04-20 06:17] LABS: CHLORIDE 106 mEq/L (99-109); POTASSIUM 3.5 mEq/L (3.7-5.4); SODIUM 141 mEq/L (136-147)
[2017-04-20 06:19] LABS: GLUCOSE 71 mg/dL (70-99)
[2017-04-20 06:20] LABS: ANION GAP 11 MEQ/L (2-14)
[2017-04-20 06:21] LABS: TOTAL BILIRUBIN 0.2 mg/dL (0.0-1.0)
[2017-04-20 06:23] LABS: ALKALINE PHOSPHATASE 79 IU/L (3-129); GFR ESTIMATE (CALCULATED) 29 mL/min/
[2017-04-20 06:24] LABS: UREA NITROGEN (BUN) 40 mg/dL (9-23)
[2017-04-20 06:26] LABS: LIPASE 20 U/L (1.0-51.0)
[2017-04-20] MEDS ORDERED: PROCARDIA XL60 MG PO (07:58)
[2017-04-20 09:24] LABS: TROP-I INTERPRETATION NEGATIVE; TROPONIN-I 0.01 ng/mL (0.0-0.30)
[2017-04-20 11:10] VITALS: BP 125/71
[2017-04-20 11:30] VITALS: BP 140/84
[2017-04-20 12:05] LABS: POINT-OF-CARE METER ID UU14162513
[2017-04-20 14:47] LABS: TROP-I INTERPRETATION NEGATIVE; TROPONIN-I 0.01 ng/mL (0.0-0.30)
[2017-04-20 15:35] VITALS: BP 181/97
[2017-04-20 17:10] LABS: POINT-OF-CARE METER ID UU14162513
[2017-04-20 19:50] VITALS: BP 165/99
[2017-04-20 20:28] LABS: POINT-OF-CARE METER ID UU14162513
[2017-04-20 20:31] LABS: TROP-I INTERPRETATION NEGATIVE; TROPONIN-I 0.02 ng/mL (0.0-0.30)
[2017-04-20 23:21] VITALS: BP 134/77
[2017-04-21] VITALS (9 sets, daily range): BP systolic 93–164; BP diastolic 46–100
[2017-04-21 03:59] LABS: ADD MIUA? YES; BILIRUBIN NEGATIVE; BLOOD SMALL; COLOR STRAW ((YELLOW)); GLUCOSE (STRIP) 150; KETONES NEGATIVE; LEUKOCYTES NEGATIVE; NITRITE NEGATIVE; PROTEIN (STRIP) 100; SPECIFIC GRAVITY 1.008 (1.000-1.030); UROBILINOGEN 0.2 MG/DL (0.2-1.0)
[2017-04-21 04:04] LABS: BACTERIA NONE SEEN /HPF; EPITHELIAL CELLS NONE SEEN /HPF; MUCUS NONE SEEN /LPF; RED BLOOD CELLS 0-5 /HPF (0-5); UCUL ADDED? NO; WHITE BLOOD CELLS 0-5 /HPF (0-5)
[2017-04-21 07:35] LABS: ANION GAP 8 MEQ/L (2-14); CHLORIDE 103 MEQ/L (99-109); GFR ESTIMATE (CALCULATED) 37 mL/min/; GLUCOSE 159 mg/dL (70-99); POTASSIUM 3.8 MEQ/L (3.7-5.4); SAMPLE HEMOLYSIS CHECK 0; SAMPLE ICTERIC CHECK 0; SAMPLE LIPEMIA CHECK 0; SODIUM 138 MEQ/L (136-147); UREA NITROGEN (BUN) 37 mg/dL (9-23)
[2017-04-21 08:40] LABS: POINT-OF-CARE METER ID UU14162513
[2017-04-21 12:43] LABS: POINT-OF-CARE METER ID UU13113831
[2017-04-21 17:01] LABS: POINT-OF-CARE METER ID UU13113831
[2017-04-22 00:01] VITALS: BP 140/75
[2017-04-22 03:39] VITALS: BP 105/60
[2017-04-22 07:17] LABS: POINT-OF-CARE METER ID UU14162508
[2017-04-22 09:38] LABS: ANION GAP 9 MEQ/L (2-14); CHLORIDE 104 MEQ/L (99-109); GFR ESTIMATE (CALCULATED) 39 mL/min/; SAMPLE HEMOLYSIS CHECK 0; SAMPLE ICTERIC CHECK 0; SAMPLE LIPEMIA CHECK 0; SODIUM 140 MEQ/L (136-147); UREA NITROGEN (BUN) 36 mg/dL (9-23)
[2017-04-22 09:41] LABS: GLUCOSE 87 mg/dL (70-99)
[2017-04-22 14:41] LABS: HEMATOCRIT 30.7 % (38.0-50.0); MCH 29.7 PG (29.0-34.0); MCHC 33.2 G/DL (30.0-36.0); MCV 89.2 FL (86-99); PLATELET COUNT 238 K/uL (156-360); RBC DIS.WIDTH-CV 14.8 % (11.8-14.6); RBC DIS.WIDTH-SD 47.8 % (39-53); RED BLOOD COUNT 3.44 M/uL (4.00-5.50); WHITE BLOOD COUNT 6.4 K/uL (4.1-10.2)
[2017-04-22 20:13] VITALS: BP 187/104
[2017-04-22 20:14] VITALS: BP 158/93
[2017-04-22 20:16] VITALS: BP 105/64; BP 160/94
[2017-04-22 20:18] VITALS: BP 106/61
[2017-04-23] VITALS (22 sets, daily range): BP systolic 95–223; BP diastolic 56–114
[2017-04-23 06:33] LABS: POINT-OF-CARE METER ID UU14162508
[2017-04-23 07:13] LABS: ANION GAP 10 MEQ/L (2-14); CHLORIDE 105 MEQ/L (99-109); GFR ESTIMATE (CALCULATED) 45 mL/min/; POTASSIUM 3.9 MEQ/L (3.7-5.4); SAMPLE HEMOLYSIS CHECK 0; SAMPLE ICTERIC CHECK 0; SAMPLE LIPEMIA CHECK 0; SODIUM 141 MEQ/L (136-147); UREA NITROGEN (BUN) 38 mg/dL (9-23)
[2017-04-23 07:16] LABS: GLUCOSE 167 mg/dL (70-99)
[2017-04-24] VITALS (25 sets, daily range): BP systolic 81–227; BP diastolic 45–110
[2017-04-24 08:22] LABS: ANION GAP 12 MEQ/L (2-14); CHLORIDE 105 MEQ/L (99-109); GFR ESTIMATE (CALCULATED) 43 mL/min/; GLUCOSE 230 mg/dL (70-99); POTASSIUM 4.2 MEQ/L (3.7-5.4); SAMPLE HEMOLYSIS CHECK 0; SAMPLE ICTERIC CHECK 0; SAMPLE LIPEMIA CHECK 0; SODIUM 139 MEQ/L (136-147); UREA NITROGEN (BUN) 43 mg/dL (9-23)
[2017-04-25] VITALS (14 sets, daily range): BP systolic 69–166; BP diastolic 46–89
[2017-04-25 00:20] LABS: POINT-OF-CARE METER ID UU14162508
[2017-04-25 02:01] LABS: POINT-OF-CARE METER ID UU14162508
[2017-04-25 07:57] LABS: ANION GAP 7 MEQ/L (2-14); CHLORIDE 106 MEQ/L (99-109); GFR ESTIMATE (CALCULATED) 39 mL/min/; GLUCOSE 166 mg/dL (70-99); POTASSIUM 4.1 MEQ/L (3.7-5.4); SAMPLE HEMOLYSIS CHECK 0; SAMPLE ICTERIC CHECK 0; SAMPLE LIPEMIA CHECK 0; SODIUM 139 MEQ/L (136-147); UREA NITROGEN (BUN) 46 mg/dL (9-23)
[2017-04-25 12:15] LABS: POINT-OF-CARE METER ID UU14162508
[2017-04-25] MEDS ORDERED: NIFEDIPINE ER30 MG PO (13:48)
[2017-04-25] MEDS ORDERED: MIDODRINE HCL5 MG PO (13:48)
[2017-04-25] MEDS ORDERED: CARVEDILOL12.5 MG PO (13:48)
== END 2017-04-25 15:05 | disposition home or self-care (01) | DRG 644 ==
LOC: EME 03:50 → 5WEST 07:53 → EDOF 07:53 → 5WEST 09:20 → 2EAST 04-21 11:32
PROVIDERS: Emergency Medicine; Hospitalist; Internal Medicine; Nurse Practitioner Adult Health; Student in an Organized Health Care Education/Training Program
DX: E34.0 Carcinoid syndrome (principal); N17.9 Acute kidney failure, unspecified; I95.1 Orthostatic hypotension; E86.0 Dehydration; E11.22 Type 2 diabetes mellitus with diabetic chronic kidney disease; I12.9 Hypertensive chronic kidney disease with stage 1 through stage 4 chronic kidney disease, or unspecified chronic kidney disease; N18.3 Chronic kidney disease, stage 3 (moderate); E11.21 Type 2 diabetes mellitus with diabetic nephropathy; Z96.41 Presence of insulin pump (external) (internal); Z79.4 Long term (current) use of insulin; E11.42 Type 2 diabetes mellitus with diabetic polyneuropathy; E11.43 Type 2 diabetes mellitus with diabetic autonomic (poly)neuropathy; K31.84 Gastroparesis; Z87.891 Personal history of nicotine dependence; D63.1 Anemia in chronic kidney disease; E11.65 Type 2 diabetes mellitus with hyperglycemia
CPT/HCPCS: 71020; 80048; 80053; 81003; 82948; 83605; 83690; 84439; 84443; 84484; 85027; 93005; 99281; 99285; G0378; J1644; J1815; J1885; J2405; J7030

== ENCOUNTER → 2017-05-19 | Outpatient (CLI) | payer OTHER ==
[~2017-05-19] MED LIST changes: +MIDODRINE HCL5 MG PO; +NIFEDIPINE ER30 MG PO; +PROCARDIA XL60 MG PO
== END | disposition home or self-care (01) ==
LOC: RES 10:00
DX: R94.2 Abnormal results of pulmonary function studies (principal); C7A.8 Other malignant neuroendocrine tumors
CPT/HCPCS: 94060; 94726; 94729

== ENCOUNTER 2017-06-06 15:10 | Inpatient (IN) | payer OTHER ==
[~2017-06-06] VITALS: Ht 180.3 cm; Wt 122.5 kg
[2017-06-06 16:07] LABS: HEMATOCRIT 29.8 % (38.0-50.0); MCH 29.5 PG (29.0-34.0); MCHC 32.6 G/DL (30.0-36.0); MCV 90.6 FL (86-99); MEAN PLAT.VOLUME 10.5 uM^3 (9.0-12.4); PLATELET COUNT 263 K/uL (156-360); RBC DIS.WIDTH-CV 15.9 % (11.8-14.6); RBC DIS.WIDTH-SD 52.5 % (39-53); RED BLOOD COUNT 3.29 M/uL (4.00-5.50); WHITE BLOOD COUNT 6.6 K/uL (4.1-10.2)
[2017-06-06 16:16] LABS: CHLORIDE 106 mEq/L (99-109); POTASSIUM 4.4 mEq/L (3.7-5.4); SODIUM 140 mEq/L (136-147)
[2017-06-06 16:17] LABS: GLUCOSE 235 mg/dL (70-99)
[2017-06-06 16:19] LABS: ANION GAP 10 MEQ/L (2-14)
[2017-06-06 16:21] LABS: GFR ESTIMATE (CALCULATED) 24 mL/min/
[2017-06-06 16:22] LABS: UREA NITROGEN (BUN) 37 mg/dL (9-23)
[2017-06-06 16:32] LABS: ERTH.SED.RATE 35 MM/HR (0-15)
[2017-06-06] MEDS ORDERED: CARVEDILOL12.5 MG PO (17:54)
[2017-06-06] MEDS ORDERED: ERGOCALCIF50000 UNIT PO (17:54)
[2017-06-06] MEDS ORDERED: MIDODRINE HCL5 MG PO (17:55)
[2017-06-06] MEDS ORDERED: VENTOLIN HFA18 GM IH (17:57)
[2017-06-06] MEDS ORDERED: NIFEDIPINE ER30 MG PO (17:57)
[2017-06-06 20:28] VITALS: BP 132/62
[2017-06-06 20:41] LABS: ADD MIUA? YES; BILIRUBIN NEGATIVE; BLOOD NEGATIVE; COLOR YELLOW ((YELLOW)); GLUCOSE (STRIP) >=500; KETONES NEGATIVE; LEUKOCYTES NEGATIVE; NITRITE NEGATIVE; PROTEIN (STRIP) >=500; SPECIFIC GRAVITY 1.012 (1.000-1.030); UROBILINOGEN 0.2 MG/DL (0.2-1.0)
[2017-06-06 20:57] LABS: BACTERIA NONE SEEN /HPF; EPITHELIAL CELLS RARE /HPF; GRANULAR CASTS 0-5 /LPF; MUCUS TRACE /LPF; RED BLOOD CELLS 0-5 /HPF (0-5); UCUL ADDED? NO; WHITE BLOOD CELLS 0-5 /HPF (0-5)
[2017-06-06 22:39] VITALS: BP 124/63
[2017-06-07] VITALS (7 sets, daily range): BP systolic 151–186; BP diastolic 79–97
[2017-06-07 06:42] LABS: HEMATOCRIT 31.8 % (38.0-50.0); MCH 29.2 PG (29.0-34.0); MCHC 32.1 G/DL (30.0-36.0); MCV 91.1 FL (86-99); MEAN PLAT.VOLUME 10.9 uM^3 (9.0-12.4); PLATELET COUNT 296 K/uL (156-360); RBC DIS.WIDTH-CV 15.9 % (11.8-14.6); RBC DIS.WIDTH-SD 53.1 % (39-53); RED BLOOD COUNT 3.49 M/uL (4.00-5.50)
[2017-06-07 07:11] LABS: ANION GAP 6 MEQ/L (2-14); CHLORIDE 109 MEQ/L (99-109); GFR ESTIMATE (CALCULATED) 32 mL/min/; GLUCOSE 121 mg/dL (70-99); POTASSIUM 4.5 MEQ/L (3.7-5.4); SAMPLE HEMOLYSIS CHECK 0; SAMPLE ICTERIC CHECK 0; SAMPLE LIPEMIA CHECK 0; SODIUM 141 MEQ/L (136-147); UREA NITROGEN (BUN) 33 mg/dL (9-23)
[2017-06-07 12:19] LABS: POINT-OF-CARE METER ID UU14174225
[2017-06-07 17:15] LABS: POINT-OF-CARE METER ID UU14188625
[2017-06-08 04:00] VITALS: BP 180/98
[2017-06-08 06:12] LABS: EOSINOPHIL (%) 4.9 % (0-5); EOSINOPHIL COUNT 0.3 K/uL (0-0.3); HEMATOCRIT 30.3 % (38.0-50.0); MCH 30.9 PG (29.0-34.0); MEAN PLAT.VOLUME 11.6 uM^3 (9.0-12.4); MONOCYTE (%) 9.1 % (3-12); MONOCYTE COUNT 0.5 K/uL (0-0.8); NEUTROPHIL (%) 51.6 % (45-76); PLATELET COUNT 291 K/uL (156-360); RBC DIS.WIDTH-CV 15.9 % (11.8-14.6); RBC DIS.WIDTH-SD 52.5 % (39-53); RED BLOOD COUNT 3.33 M/uL (4.00-5.50); WHITE BLOOD COUNT 5.7 K/uL (4.1-10.2)
[2017-06-08 07:00] LABS: ANION GAP 8 MEQ/L (2-14); CHLORIDE 106 MEQ/L (99-109); GFR ESTIMATE (CALCULATED) 39 mL/min/; POTASSIUM 4.9 MEQ/L (3.7-5.4); SAMPLE HEMOLYSIS CHECK 2; SAMPLE ICTERIC CHECK 0; SAMPLE LIPEMIA CHECK 0; SODIUM 140 MEQ/L (136-147); UREA NITROGEN (BUN) 28 mg/dL (9-23)
[2017-06-08 07:08] LABS: GLUCOSE 205 mg/dL (70-99)
[2017-06-08 07:59] VITALS: BP 161/88
[2017-06-08 12:00] VITALS: BP 172/94
[2017-06-08 12:01] VITALS: BP 178/96
[2017-06-08 12:07] VITALS: BP 160/88
[2017-06-08 12:36] LABS: POINT-OF-CARE METER ID UU14188625
[2017-06-08] MEDS ORDERED: LEVEMIR100 UNIT/2 SC (14:56)
[2017-06-08] MEDS ORDERED: LISINOPRIL2.5 MG PO (14:56)
== END 2017-06-08 16:12 | disposition home or self-care (01) | DRG 683 ==
LOC: EME 15:10 → EDOF 18:33 → 5SOUTH 18:33
PROVIDERS: Hospitalist; Internal Medicine Nephrology; Physician Assistant
DX: N17.9 Acute kidney failure, unspecified (principal); I95.1 Orthostatic hypotension; E86.0 Dehydration; C7A.090 Malignant carcinoid tumor of the bronchus and lung; D63.1 Anemia in chronic kidney disease; E11.21 Type 2 diabetes mellitus with diabetic nephropathy; E11.22 Type 2 diabetes mellitus with diabetic chronic kidney disease; E11.42 Type 2 diabetes mellitus with diabetic polyneuropathy; E11.43 Type 2 diabetes mellitus with diabetic autonomic (poly)neuropathy; K31.84 Gastroparesis; I12.9 Hypertensive chronic kidney disease with stage 1 through stage 4 chronic kidney disease, or unspecified chronic kidney disease; N18.3 Chronic kidney disease, stage 3 (moderate); E78.5 Hyperlipidemia, unspecified; I27.2 Other secondary pulmonary hypertension; I42.9 Cardiomyopathy, unspecified; K21.9 Gastro-esophageal reflux disease without esophagitis; E55.9 Vitamin D deficiency, unspecified; F32.9 Major depressive disorder, single episode, unspecified; G89.29 Other chronic pain; M54.9 Dorsalgia, unspecified; E66.9 Obesity, unspecified; Z96.41 Presence of insulin pump (external) (internal); Z79.4 Long term (current) use of insulin; Z68.37 Body mass index [BMI] 37.0-37.9, adult; Z87.891 Personal history of nicotine dependence
CPT/HCPCS: 36415; 70450; 80048; 80048 91; 80069; 81003; 82948; 85025; 85027; 85610; 85651; 85730; 93970; 99202; 99281; 99285; J1170; J1644; J1815; J3010; J7030; S0028

== ENCOUNTER 2017-07-05 23:35 | Inpatient (IN) | payer OTHER ==
[~2017-07-05] VITALS: Ht 180.3 cm; Wt 121.3 kg
[~2017-07-05 23:35] MED LIST changes: +LEVEMIR100 UNIT/2 SC; +LISINOPRIL2.5 MG PO
[2017-07-06] VITALS (21 sets, daily range): BP systolic 0–172; BP diastolic 0–94
[2017-07-06 01:29] LABS: BASOPHIL COUNT 0.1 K/uL (0-0.1); EOSINOPHIL (%) 0 % (0-5); HEMATOCRIT 27.9 % (38.0-50.0); IMMATURE GRANULOCYTE (%) 0.8 % (0.0-0.7); IMMATURE GRANULOCYTE COUNT 0.2 K/uL; INSTRUMENT ABS NEUTROPHIL CT 20.2 K/uL; LYMPHOCYTE COUNT 1.2 K/uL (1.0-2.8); MCH 29.7 PG (29.0-34.0); MCHC 32.6 G/DL (30.0-36.0); MCV 91.2 FL (86-99); MEAN PLAT.VOLUME 10.2 uM^3 (9.0-12.4); MONOCYTE (%) 3.5 % (3-12); MONOCYTE COUNT 0.8 K/uL (0-0.8); NEUTROPHIL (%) 90.1 % (45-76); NEUTROPHIL COUNT 20.2 K/uL (1.8-6.4); RBC DIS.WIDTH-CV 13.7 % (11.8-14.6); RBC DIS.WIDTH-SD 45.2 % (39-53); RED BLOOD COUNT 3.06 M/uL (4.00-5.50); WHITE BLOOD COUNT 22.4 K/uL (4.1-10.2)
[2017-07-06 01:30] LABS: PLATELET COUNT 482 K/uL (156-360)
[2017-07-06 01:45] LABS: CHLORIDE 101 mEq/L (99-109); SODIUM 139 mEq/L (136-147)
[2017-07-06 01:48] LABS: ANION GAP 23 MEQ/L (2-14)
[2017-07-06 01:49] LABS: TOTAL BILIRUBIN 0.3 mg/dL (0.0-1.0)
[2017-07-06 01:50] LABS: ALKALINE PHOSPHATASE 96 IU/L (3-129)
[2017-07-06 01:51] LABS: GFR ESTIMATE (CALCULATED) 24 mL/min/
[2017-07-06 01:52] LABS: UREA NITROGEN (BUN) 42 mg/dL (9-23)
[2017-07-06 01:54] LABS: GLUCOSE 770 mg/dL (70-99); LIPASE 16 U/L (1.0-51.0)
[2017-07-06 02:54] LABS: CARBON DIOXIDE (BICARBONATE) 18.8 MEQ/L (20-31)
[2017-07-06 05:38] LABS: METH RESISTANT S AUREUS PCR NEGATIVE (NEGATIVE)
[2017-07-06 05:39] LABS: PROBE CHECK PASS; SPECIMEN PROCESSING CONTROL PASS
[2017-07-06 06:51] LABS: Estimated Average Glucose 232 mg/dL (70-123); HEMOGLOBIN A1c (GLYCOHEMOGLOB) 9.7 % HGB (Below 5.7)
[2017-07-06 07:02] LABS: CHLORIDE 104 mEq/L (99-109); POTASSIUM 3.6 mEq/L (3.7-5.4); SODIUM 138 mEq/L (136-147)
[2017-07-06 07:05] LABS: ANION GAP 16 MEQ/L (2-14)
[2017-07-06 07:07] LABS: GFR ESTIMATE (CALCULATED) 25 mL/min/; GLUCOSE 601 mg/dL (70-99)
[2017-07-06 07:08] LABS: UREA NITROGEN (BUN) 41 mg/dL (9-23)
[2017-07-06 08:20] LABS: POINT-OF-CARE METER ID UU14162636
[2017-07-06 08:33] LABS: ANION GAP 11 MEQ/L (2-14); CHLORIDE 106 MEQ/L (99-109); POTASSIUM 3.6 MEQ/L (3.7-5.4); SAMPLE HEMOLYSIS CHECK 0; SAMPLE ICTERIC CHECK 0; SAMPLE LIPEMIA CHECK 0; SODIUM 143 MEQ/L (136-147)
[2017-07-06 08:51] LABS: GFR ESTIMATE (CALCULATED) 28 mL/min/; UREA NITROGEN (BUN) 41 mg/dL (9-23)
[2017-07-06 08:57] LABS: GLUCOSE 402 mg/dL (70-99)
[2017-07-06 09:45] LABS: POINT-OF-CARE METER ID UU14162636
[2017-07-06 11:02] LABS: POINT-OF-CARE METER ID UU14162636
[2017-07-06 11:38] LABS: POINT-OF-CARE METER ID UU13113702
[2017-07-06 11:38] LABS: POINT-OF-CARE METER ID UU13113702
[2017-07-06 11:38] LABS: POINT-OF-CARE METER ID UU14162636
[2017-07-06 11:38] LABS: POINT-OF-CARE METER ID UU13113731
[2017-07-06 11:38] LABS: POINT-OF-CARE METER ID UU14162636
[2017-07-06 12:05] LABS: POINT-OF-CARE METER ID UU14162636
[2017-07-06 13:09] LABS: POINT-OF-CARE METER ID UU14162636
[2017-07-06 13:21] LABS: ANION GAP 9 MEQ/L (2-14); CHLORIDE 109 MEQ/L (99-109); POTASSIUM 3.6 MEQ/L (3.7-5.4); SAMPLE HEMOLYSIS CHECK 0; SAMPLE ICTERIC CHECK 0; SAMPLE LIPEMIA CHECK 0; SODIUM 144 MEQ/L (136-147)
[2017-07-06 13:27] LABS: GFR ESTIMATE (CALCULATED) 28 mL/min/; GLUCOSE 204 mg/dL (70-99); UREA NITROGEN (BUN) 41 mg/dL (9-23)
[2017-07-06 14:13] LABS: POINT-OF-CARE METER ID UU14162636
[2017-07-06 15:18] LABS: POINT-OF-CARE METER ID UU14162636
[2017-07-06 16:22] LABS: ANION GAP 10 MEQ/L (2-14); CHLORIDE 107 MEQ/L (99-109); POTASSIUM 3.3 MEQ/L (3.7-5.4); SAMPLE HEMOLYSIS CHECK 0; SAMPLE ICTERIC CHECK 0; SAMPLE LIPEMIA CHECK 0; SODIUM 143 MEQ/L (136-147)
[2017-07-06 16:23] LABS: POINT-OF-CARE METER ID UU14162636
[2017-07-06 16:28] LABS: GFR ESTIMATE (CALCULATED) 29 mL/min/; GLUCOSE 130 mg/dL (70-99); UREA NITROGEN (BUN) 41 mg/dL (9-23)
[2017-07-06 17:45] LABS: POINT-OF-CARE METER ID UU14162636
[2017-07-06 18:25] LABS: POINT-OF-CARE METER ID UU13113731
[2017-07-06 19:37] LABS: POINT-OF-CARE METER ID UU14162636
[2017-07-06 20:39] LABS: POINT-OF-CARE METER ID UU13113731
[2017-07-06 20:41] LABS: ANION GAP 11 MEQ/L (2-14); CHLORIDE 107 MEQ/L (99-109); POTASSIUM 3.3 MEQ/L (3.7-5.4); SAMPLE HEMOLYSIS CHECK 0; SAMPLE ICTERIC CHECK 0; SAMPLE LIPEMIA CHECK 0; SODIUM 144 MEQ/L (136-147)
[2017-07-06 20:46] LABS: GFR ESTIMATE (CALCULATED) 30 mL/min/; GLUCOSE 148 mg/dL (70-99); UREA NITROGEN (BUN) 39 mg/dL (9-23)
[2017-07-06 21:33] LABS: POINT-OF-CARE METER ID UU13113731
[2017-07-06 22:38] LABS: POINT-OF-CARE METER ID UU13113731
[2017-07-06 23:36] LABS: POINT-OF-CARE METER ID UU13113731
[2017-07-07] VITALS (15 sets, daily range): BP systolic 0–182; BP diastolic 0–98
[2017-07-07 00:36] LABS: POINT-OF-CARE METER ID UU14162636
[2017-07-07 01:20] LABS: CHLORIDE 109 mEq/L (99-109); POTASSIUM 3.6 mEq/L (3.7-5.4); SODIUM 143 mEq/L (136-147)
[2017-07-07 01:21] LABS: GLUCOSE 178 mg/dL (70-99)
[2017-07-07 01:23] LABS: ANION GAP 10 MEQ/L (2-14)
[2017-07-07 01:25] LABS: GFR ESTIMATE (CALCULATED) 29 mL/min/
[2017-07-07 01:26] LABS: UREA NITROGEN (BUN) 40 mg/dL (9-23)
[2017-07-07 01:37] LABS: POINT-OF-CARE METER ID UU14174217
[2017-07-07 02:00] LABS: EOSINOPHIL COUNT 0.2 K/uL (0-0.3); HEMATOCRIT 26.4 % (38.0-50.0); IMMATURE GRANULOCYTE (%) 0.7 % (0.0-0.7); IMMATURE GRANULOCYTE COUNT 0.1 K/uL; INSTRUMENT ABS NEUTROPHIL CT 17.5 K/uL; LYMPHOCYTE COUNT 1.9 K/uL (1.0-2.8); MCH 29.6 PG (29.0-34.0); MCV 89.8 FL (86-99); MONOCYTE (%) 5.1 % (3-12); MONOCYTE COUNT 1.1 K/uL (0-0.8); NEUTROPHIL (%) 83.9 % (45-76); NEUTROPHIL COUNT 17.5 K/uL (1.8-6.4); RBC DIS.WIDTH-CV 13.7 % (11.8-14.6); RBC DIS.WIDTH-SD 44.9 % (39-53); RED BLOOD COUNT 2.94 M/uL (4.00-5.50); WHITE BLOOD COUNT 20.8 K/uL (4.1-10.2)
[2017-07-07 02:34] LABS: POINT-OF-CARE METER ID UU13113748
[2017-07-07 03:16] LABS: MEAN PLAT.VOLUME 10.3 uM^3 (9.0-12.4); PLAT.SUFFICIENCY ADEQUATE; PLATELET COUNT 402 K/uL (156-360)
[2017-07-07 03:40] LABS: POINT-OF-CARE METER ID UU13113748
[2017-07-07 04:27] LABS: POINT-OF-CARE METER ID UU13113748
[2017-07-07 06:14] LABS: POINT-OF-CARE METER ID UU14174217
[2017-07-07 06:17] LABS: ANION GAP 9 MEQ/L (2-14); CHLORIDE 109 MEQ/L (99-109); GFR ESTIMATE (CALCULATED) 31 mL/min/; GLUCOSE 103 mg/dL (70-99); MAGNESIUM 1.9 mg/dl (1.3-2.7); POTASSIUM 3.5 MEQ/L (3.7-5.4); SAMPLE HEMOLYSIS CHECK 0; SAMPLE ICTERIC CHECK 0; SAMPLE LIPEMIA CHECK 0; SODIUM 144 MEQ/L (136-147); UREA NITROGEN (BUN) 37 mg/dL (9-23)
[2017-07-07 09:14] LABS: IRON 19 MCG/DL (35-150)
[2017-07-07 10:19] LABS: POINT-OF-CARE METER ID UU13113748
[2017-07-07 10:49] LABS: TYPE OF FLUID PLEURAL
[2017-07-07 11:30] LABS: BODY FLUID LDH 198 IU/L; BODY FLUID PROTEIN 3.8 G/DL
[2017-07-07 11:37] LABS: BODY FLUID RBC'S 12000 /MM^3 (0-100); BODY FLUID WBC'S 1009 /MM^3 (0-500)
[2017-07-07 12:14] LABS: BODY FLUID EOSINOPHILS 0 % (0-25); MONONUCLEAR WBC'S 86 %; POLYNUCLEAR WBC'S 14 % (0-25)
[2017-07-07 15:17] LABS: POINT-OF-CARE METER ID UU14174217
[2017-07-07 15:46] LABS: POINT-OF-CARE METER ID UU14174217
[2017-07-07 16:29] LABS: POINT-OF-CARE METER ID UU13113748
[2017-07-07 18:08] LABS: POINT-OF-CARE METER ID UU13113748
[2017-07-07 22:53] LABS: POINT-OF-CARE METER ID UU13113748
[2017-07-08 01:13] VITALS: BP 142/74
[2017-07-08] MEDS ORDERED: DILAUDID4 MG PO (02:14)
[2017-07-08 04:06] VITALS: BP 134/77
[2017-07-08 05:00] LABS: CHLORIDE 108 mEq/L (99-109); POTASSIUM 3.8 mEq/L (3.7-5.4); SODIUM 140 mEq/L (136-147)
[2017-07-08 05:02] LABS: GLUCOSE 152 mg/dL (70-99)
[2017-07-08 05:03] LABS: ANION GAP 7 MEQ/L (2-14)
[2017-07-08 05:06] LABS: GFR ESTIMATE (CALCULATED) 37 mL/min/
[2017-07-08 05:07] LABS: UREA NITROGEN (BUN) 31 mg/dL (9-23)
[2017-07-08 05:10] LABS: HEMATOCRIT 28.2 % (38.0-50.0); MCH 29.8 PG (29.0-34.0); MCHC 32.6 G/DL (30.0-36.0); MCV 91.3 FL (86-99); MEAN PLAT.VOLUME 10.1 uM^3 (9.0-12.4); PLATELET COUNT 383 K/uL (156-360); RBC DIS.WIDTH-CV 13.7 % (11.8-14.6); RBC DIS.WIDTH-SD 46.1 % (39-53); RED BLOOD COUNT 3.09 M/uL (4.00-5.50); WHITE BLOOD COUNT 11.4 K/uL (4.1-10.2)
[2017-07-08 07:33] LABS: POINT-OF-CARE METER ID UU13113698
[2017-07-08 09:00] VITALS: BP 177/98
[2017-07-08] MEDS ORDERED: LEVEMIR100 UNIT/2 SC (09:39)
[2017-07-08] MEDS ORDERED: FEOSOL325 MG PO (09:40)
[2017-07-08] MEDS ORDERED: LEVAQUIN500 MG PO (09:41)
[2017-07-08 11:18] LABS: POINT-OF-CARE METER ID UU13113698
[2017-07-08 11:42] VITALS: BP 145/72
[2017-07-11 04:26] LABS: BODY FLUID PH 7.9 (())
== END 2017-07-08 12:27 | disposition home or self-care (01) | DRG 193 ==
LOC: EME 23:35 → EDOF 07-06 03:01 → 4WEST 07-06 03:01 → ENRESERV 07-06 03:02 → 4WEST 07-06 04:05 → ENRESERV 07-08 00:02 → 4EAST 07-08 01:15
PROVIDERS: Emergency Medicine; Hospitalist; Internal Medicine Critical Care Medicine; Radiology Diagnostic Radiology
PROC: 0W9B3ZZ Drainage of Left Pleural Cavity, Percutaneous Approach (ICD-10-PCS; principal; 2017-07-07)
DX: J18.9 Pneumonia, unspecified organism (principal); E10.10 Type 1 diabetes mellitus with ketoacidosis without coma; J90 Pleural effusion, not elsewhere classified; N17.9 Acute kidney failure, unspecified; N25.81 Secondary hyperparathyroidism of renal origin; E10.43 Type 1 diabetes mellitus with diabetic autonomic (poly)neuropathy; K31.84 Gastroparesis; E86.0 Dehydration; E87.6 Hypokalemia; I12.9 Hypertensive chronic kidney disease with stage 1 through stage 4 chronic kidney disease, or unspecified chronic kidney disease; N18.3 Chronic kidney disease, stage 3 (moderate); E10.21 Type 1 diabetes mellitus with diabetic nephropathy; E10.22 Type 1 diabetes mellitus with diabetic chronic kidney disease; D63.1 Anemia in chronic kidney disease; E55.9 Vitamin D deficiency, unspecified; J98.11 Atelectasis; I95.1 Orthostatic hypotension; D49.1 Neoplasm of unspecified behavior of respiratory system; E78.5 Hyperlipidemia, unspecified; G47.33 Obstructive sleep apnea (adult) (pediatric); K21.9 Gastro-esophageal reflux disease without esophagitis; E66.9 Obesity, unspecified; Z68.37 Body mass index [BMI] 37.0-37.9, adult; Z79.4 Long term (current) use of insulin; Z86.61 Personal history of infections of the central nervous system; Z87.891 Personal history of nicotine dependence; Z90.2 Acquired absence of lung [part of]; Z91.19 Patient's noncompliance with other medical treatment and regimen
CPT/HCPCS: 71010; 71250; 74176; 76942; 80048; 80048 91; 80053; 80069; 82306; 82803; 82945; 82948; 83036; 83540; 83605; 83615 91; 83690; 83735; 83986 90; 84100; 84157; 84466; 85025; 85025 91; 85027; 87040; 87070; 87075; 87116; 87205; 87206; 87641; 88108; 88305; 89051; 94799; 99202; 99281; 99285; J0696; J1170; J1644; J1756; J1815; J2270; J2405; J2543; J2765; J3480; J7030; J7050

== ENCOUNTER 2017-12-09 06:42 | Emergency (ER) | payer OTHER ==
[~2017-12-09] VITALS: Ht 180.3 cm; Wt 118.1 kg
[~2017-12-09 06:42] MED LIST changes: +DILAUDID4 MG PO; +FEOSOL325 MG PO; +LEVAQUIN500 MG PO
[2017-12-09] MEDS ORDERED: HUMALOG100 UNIT/1 SC (07:31)
[2017-12-09 07:32] LABS: BASOPHIL (%) 0.4 % (0-1); BASOPHIL COUNT 0.1 K/uL (0-0.1); EOSINOPHIL (%) 3.6 % (0-5); EOSINOPHIL COUNT 0.4 K/uL (0-0.3); HEMATOCRIT 30.3 % (38.0-50.0); HEMOGLOBIN 10.1 G/DL (12.5-16.6); IMMATURE GRANULOCYTE (%) 0.3 % (0.0-0.7); LYMPHOCYTE (%) 15.4 % (15-42); LYMPHOCYTE COUNT 1.7 K/uL (1.0-2.8); MCH 30.5 PG (29.0-34.0); MCHC 33.3 G/DL (30.0-36.0); MCV 91.5 FL (86-99); MONOCYTE (%) 8.9 % (3-12); NEUTROPHIL (%) 71.4 % (45-76); PLATELET COUNT 368 K/uL (156-360); RBC DIS.WIDTH-CV 14.3 % (11.8-14.6); RBC DIS.WIDTH-SD 48.2 % (39-53); RED BLOOD COUNT 3.31 M/uL (4.00-5.50); WHITE BLOOD COUNT 11.2 K/uL (4.1-10.2)
[2017-12-09 07:33] LABS: CARBON DIOXIDE (BICARBONATE) 25.4 MEQ/L (20-31)
[2017-12-09 08:05] LABS: CHLORIDE 105 MEQ/L (99-109); SODIUM 139 MEQ/L (136-147)
[2017-12-09 08:10] LABS: CREATININE 4.4 MG/DL (0.6-1.3); GFR ESTIMATE (CALCULATED) 19 mL/min/ (58.99-99999); GLUCOSE 215 mg/dL (70-99); UREA NITROGEN (BUN) 55 mg/dL (9-23)
[2017-12-09 11:21] LABS: CHLORIDE 109 mEq/L (99-109); POTASSIUM 3.6 mEq/L (3.7-5.4); SODIUM 140 mEq/L (136-147)
[2017-12-09 11:27] LABS: CREATININE 4.4 mg/dL (0.6-1.3); GFR ESTIMATE (CALCULATED) 19 mL/min/ (58.99-99999)
[2017-12-09 11:28] LABS: UREA NITROGEN (BUN) 53 mg/dL (9-23)
[2017-12-09 11:35] LABS: GLUCOSE 65 mg/dL (70-99)
[2017-12-09] MEDS ORDERED: IMODIUM A-D2 M2 PO (12:11)
[2017-12-09] MEDS ORDERED: ZOFRAN4 MG PO (12:11)
[2017-12-09 12:29] VITALS: BP 157/69
== END 2017-12-09 12:41 | disposition home or self-care (01) ==
LOC: EME 06:42
PROVIDERS: Emergency Medicine
DX: R11.2 Nausea with vomiting, unspecified (principal); R19.7 Diarrhea, unspecified; E86.0 Dehydration; I10 Essential (primary) hypertension; E11.9 Type 2 diabetes mellitus without complications; F32.9 Major depressive disorder, single episode, unspecified; F41.9 Anxiety disorder, unspecified; G89.29 Other chronic pain; K21.9 Gastro-esophageal reflux disease without esophagitis; Z79.4 Long term (current) use of insulin; Z85.118 Personal history of other malignant neoplasm of bronchus and lung; Z86.61 Personal history of infections of the central nervous system; Z87.891 Personal history of nicotine dependence; Z90.2 Acquired absence of lung [part of]
CPT/HCPCS: 71045; 80048; 80048 91; 82010; 82803; 82948; 85025; J2405; J7030

== ENCOUNTER 2017-12-15 11:52 | Inpatient (IN) | payer OTHER ==
[~2017-12-15] VITALS: Ht 180.3 cm; Wt 115.4 kg
[~2017-12-15 11:52] MED LIST changes: +IMODIUM A-D2 M2 PO
[2017-12-15 13:16] LABS: HEMATOCRIT 25.6 % (38.0-50.0); HEMOGLOBIN 8.6 G/DL (12.5-16.6); MCHC 33.6 G/DL (30.0-36.0); MCV 92.4 FL (86-99); PLATELET COUNT 308 K/uL (156-360); RBC DIS.WIDTH-CV 13.9 % (11.8-14.6); RBC DIS.WIDTH-SD 47.1 % (39-53); RED BLOOD COUNT 2.77 M/uL (4.00-5.50); WHITE BLOOD COUNT 8.7 K/uL (4.1-10.2)
[2017-12-15 13:26] LABS: ALBUMIN 3.1 g/dL (3.2-4.8); CHLORIDE 107 mEq/L (99-109); POTASSIUM 3.9 mEq/L (3.7-5.4); SODIUM 140 mEq/L (136-147)
[2017-12-15 13:29] LABS: GLUCOSE 98 mg/dL (70-99); TOTAL PROTEIN 6.4 g/dL (6.4-8.3)
[2017-12-15 13:30] LABS: TOTAL BILIRUBIN 0.1 mg/dL (0.0-1.0)
[2017-12-15 13:32] LABS: ALKALINE PHOSPHATASE 121 IU/L (3-129); CREATININE 4.6 mg/dL (0.6-1.3); GFR ESTIMATE (CALCULATED) 18 mL/min/ (58.99-99999)
[2017-12-15 13:33] LABS: UREA NITROGEN (BUN) 57 mg/dL (9-23)
[2017-12-15 13:34] LABS: AST (GOT) 46 IU/L (2-34)
[2017-12-15 13:35] LABS: ALT (GPT) 56 IU/L (3-49)
[2017-12-15 13:36] LABS: TROP-I INTERPRETATION NEGATIVE; TROPONIN-I 0.05 ng/mL (0.0-0.30)
[2017-12-15] MEDS ORDERED: FEOSOL325 MG PO (14:38)
[2017-12-15] MEDS ORDERED: LEVEMIR100 UNIT/2 SC (14:41)
[2017-12-15] MEDS ORDERED: HYDROCHLOROTH12.5 M3 PO (14:42)
[2017-12-15] MEDS ORDERED: CARVEDILOL12.5 MG PO (14:44)
[2017-12-15] MEDS ORDERED: LANTUS 10100 UNITS/ SC (14:46)
[2017-12-15 15:10] LABS: APPEARANCE CLEAR ((CLEAR)); BILIRUBIN NEGATIVE; BLOOD NEGATIVE; COLOR YELLOW ((YELLOW)); GLUCOSE (STRIP) 50; KETONES NEGATIVE; LEUKOCYTES NEGATIVE; NITRITE NEGATIVE; PROTEIN (STRIP) >=500; SPECIFIC GRAVITY 1.012 (1.000-1.030); UROBILINOGEN 0.2 MG/DL (0.2-1.0)
[2017-12-15 15:14] LABS: BACTERIA RARE /HPF; EPITHELIAL CELLS RARE /HPF; HYALINE CASTS 0-5 /LPF; MUCUS TRACE /LPF; UCUL ADDED? YES
[2017-12-15 16:04] LABS: TROP-I INTERPRETATION NEGATIVE; TROPONIN-I 0.05 ng/mL (0.0-0.30)
[2017-12-15 16:29] LABS: LIPASE 72 U/L (1.0-51.0)
[2017-12-15 17:01] LABS: BENZODIAZEPINES, URINE SCREEN Negative (200 ng/mL)
[2017-12-15 19:50] VITALS: BP 191/100
[2017-12-15 20:20] VITALS: BP 197/100
[2017-12-16] VITALS (9 sets, daily range): BP systolic 93–190; BP diastolic 60–98
[2017-12-16 05:06] LABS: HEMOGLOBIN 8.6 G/DL (12.5-16.6); MCH 30.2 PG (29.0-34.0); MCHC 33.1 G/DL (30.0-36.0); MCV 91.2 FL (86-99); PLATELET COUNT 304 K/uL (156-360); RBC DIS.WIDTH-CV 13.8 % (11.8-14.6); RBC DIS.WIDTH-SD 46.5 % (39-53); RED BLOOD COUNT 2.85 M/uL (4.00-5.50); WHITE BLOOD COUNT 8.8 K/uL (4.1-10.2)
[2017-12-16 05:16] LABS: CHLORIDE 110 mEq/L (99-109); POTASSIUM 4.2 mEq/L (3.7-5.4); SODIUM 138 mEq/L (136-147)
[2017-12-16 05:21] LABS: CREATININE 4.1 mg/dL (0.6-1.3); GFR ESTIMATE (CALCULATED) 21 mL/min/ (58.99-99999); GLUCOSE 226 mg/dL (70-99)
[2017-12-16 05:22] LABS: UREA NITROGEN (BUN) 52 mg/dL (9-23)
[2017-12-16 05:25] LABS: TROP-I INTERPRETATION NEGATIVE; TROPONIN-I 0.03 ng/mL (0.0-0.30)
[2017-12-16 05:32] LABS: INTER. NORMALIZED RATIO 0.9
[2017-12-16 05:35] LABS: PTT 27.8 SEC (25-37)
[2017-12-16 13:16] LABS: HEMOGLOBIN A1c (GLYCOHEMOGLOB) 8.7 % (Below 5.7)
[2017-12-17 00:26] VITALS: BP 158/78
[2017-12-17 07:17] LABS: BASOPHIL (%) 0.7 % (0-1); BASOPHIL COUNT 0.1 K/uL (0-0.1); EOSINOPHIL (%) 3.6 % (0-5); EOSINOPHIL COUNT 0.3 K/uL (0-0.3); HEMATOCRIT 27.4 % (38.0-50.0); HEMOGLOBIN 9.1 G/DL (12.5-16.6); IMMATURE GRANULOCYTE (%) 0.4 % (0.0-0.7); LYMPHOCYTE (%) 27.2 % (15-42); MCH 30.7 PG (29.0-34.0); MCHC 33.2 G/DL (30.0-36.0); MCV 92.6 FL (86-99); MONOCYTE COUNT 0.5 K/uL (0-0.8); NEUTROPHIL (%) 62.1 % (45-76); NEUTROPHIL COUNT 4.7 K/uL (1.8-6.4); RBC DIS.WIDTH-CV 14.4 % (11.8-14.6); RBC DIS.WIDTH-SD 48.4 % (39-53); RED BLOOD COUNT 2.96 M/uL (4.00-5.50); WHITE BLOOD COUNT 7.5 K/uL (4.1-10.2)
[2017-12-17 07:27] LABS: ALBUMIN 2.6 G/DL (3.2-4.8); ALKALINE PHOSPHATASE 98 IU/L (3-129); ALT (GPT) 34 IU/L (3-49); AST (GOT) 30 IU/L (2-34); CHLORIDE 108 MEQ/L (99-109); CREATININE 4.6 MG/DL (0.6-1.3); GFR ESTIMATE (CALCULATED) 18 mL/min/ (58.99-99999); GLUCOSE 237 mg/dL (70-99); POTASSIUM 4.2 MEQ/L (3.7-5.4); SODIUM 138 MEQ/L (136-147); TOTAL BILIRUBIN 0.2 MG/DL (0.0-1.0); TOTAL PROTEIN 5.3 G/DL (6.4-8.3); UREA NITROGEN (BUN) 52 mg/dL (9-23)
[2017-12-17 07:45] LABS: PLAT.SUFFICIENCY ADEQUATE
[2017-12-17 08:15] LABS: PLATELET COUNT 206 K/uL (156-360)
[2017-12-17 09:30] VITALS: BP 183/89
[2017-12-17 11:20] VITALS: BP 131/81
[2017-12-17 15:06] VITALS: BP 165/83
[2017-12-17 20:28] VITALS: BP 169/79
[2017-12-18] VITALS (8 sets, daily range): BP systolic 144–183; BP diastolic 65–96
[2017-12-18 05:39] LABS: BASOPHIL (%) 0.6 % (0-1); EOSINOPHIL (%) 3.8 % (0-5); EOSINOPHIL COUNT 0.3 K/uL (0-0.3); HEMATOCRIT 25.4 % (38.0-50.0); HEMOGLOBIN 8.4 G/DL (12.5-16.6); IMMATURE GRANULOCYTE (%) 0.3 % (0.0-0.7); LYMPHOCYTE (%) 27.7 % (15-42); MCH 30.8 PG (29.0-34.0); MCHC 33.1 G/DL (30.0-36.0); MONOCYTE (%) 6.2 % (3-12); MONOCYTE COUNT 0.4 K/uL (0-0.8); NEUTROPHIL (%) 61.4 % (45-76); NEUTROPHIL COUNT 4.4 K/uL (1.8-6.4); RBC DIS.WIDTH-CV 14.4 % (11.8-14.6); RBC DIS.WIDTH-SD 48.4 % (39-53); RED BLOOD COUNT 2.73 M/uL (4.00-5.50); WHITE BLOOD COUNT 7.1 K/uL (4.1-10.2)
[2017-12-18 05:40] LABS: PLATELET COUNT 304 K/uL (156-360)
[2017-12-18 06:29] LABS: ALBUMIN 2.7 G/DL (3.2-4.8); ALKALINE PHOSPHATASE 88 IU/L (3-129); ALT (GPT) 28 IU/L (3-49); AST (GOT) 23 IU/L (2-34); CHLORIDE 110 MEQ/L (99-109); CREATININE 4.9 MG/DL (0.6-1.3); GFR ESTIMATE (CALCULATED) 17 mL/min/ (58.99-99999); GLUCOSE 207 mg/dL (70-99); SODIUM 141 MEQ/L (136-147); TOTAL BILIRUBIN 0.2 MG/DL (0.0-1.0); TOTAL PROTEIN 5.7 G/DL (6.4-8.3); UREA NITROGEN (BUN) 50 mg/dL (9-23)
[2017-12-18 09:52] LABS: IRON 49 MCG/DL (35-150); TRANSFERRIN (TIBC) 188.6 mg/dL (215-380); TRANSFERRIN SATUR. 26 % (20-55)
[2017-12-18 13:14] LABS: UR CREATININE CONCENTRATION 109.7 MG/DL
[2017-12-19 03:00] VITALS: BP 179/90
[2017-12-19 06:10] LABS: ALBUMIN 2.6 G/DL (3.2-4.8); CHLORIDE 107 MEQ/L (99-109); CREATININE 4.9 MG/DL (0.6-1.3); GFR ESTIMATE (CALCULATED) 17 mL/min/ (58.99-99999); GLUCOSE 200 mg/dL (70-99); PHOSPHORUS 4.3 mg/dL (2.5-4.9); SODIUM 138 MEQ/L (136-147); UREA NITROGEN (BUN) 49 mg/dL (9-23)
[2017-12-19 08:56] VITALS: BP 144/88
[2017-12-19 09:00] VITALS: BP 102/60; BP 144/88; BP 156/86
[2017-12-19 11:33] VITALS: BP 160/82
[2017-12-19] MEDS ORDERED: LEVEMIR100 UNIT/2 SC (15:22)
[2017-12-19] MEDS ORDERED: NOVOLOG 10100 UNITS/ SC (15:26)
[2017-12-19] MEDS ORDERED: GABAPENTIN100 MG PO (15:27)
== END 2017-12-19 17:14 | disposition home or self-care (01) | DRG 683 ==
LOC: EME 11:52 → 4EAST 15:38 → EDOF 15:38 → ENRESERV 15:42 → 4EAST 19:41
PROVIDERS: Hospitalist; Internal Medicine Cardiovascular Disease; Internal Medicine Nephrology; Physician Assistant Medical
DX: N17.9 Acute kidney failure, unspecified (principal); I95.1 Orthostatic hypotension; E86.0 Dehydration; E10.43 Type 1 diabetes mellitus with diabetic autonomic (poly)neuropathy; K31.84 Gastroparesis; E10.21 Type 1 diabetes mellitus with diabetic nephropathy; E10.22 Type 1 diabetes mellitus with diabetic chronic kidney disease; I12.9 Hypertensive chronic kidney disease with stage 1 through stage 4 chronic kidney disease, or unspecified chronic kidney disease; N18.4 Chronic kidney disease, stage 4 (severe); N25.81 Secondary hyperparathyroidism of renal origin; E27.40 Unspecified adrenocortical insufficiency; D50.9 Iron deficiency anemia, unspecified; D63.1 Anemia in chronic kidney disease; E78.5 Hyperlipidemia, unspecified; F32.9 Major depressive disorder, single episode, unspecified; K21.9 Gastro-esophageal reflux disease without esophagitis; G47.33 Obstructive sleep apnea (adult) (pediatric); G89.29 Other chronic pain; M54.5 Low back pain; M48.061 Spinal stenosis, lumbar region without neurogenic claudication; R31.29 Other microscopic hematuria; R32 Unspecified urinary incontinence; F41.9 Anxiety disorder, unspecified; M51.26 Other intervertebral disc displacement, lumbar region; E66.9 Obesity, unspecified; Z68.34 Body mass index [BMI] 34.0-34.9, adult; Z79.4 Long term (current) use of insulin; Z86.61 Personal history of infections of the central nervous system; Z87.891 Personal history of nicotine dependence; Z91.19 Patient's noncompliance with other medical treatment and regimen; Z90.2 Acquired absence of lung [part of]
CPT/HCPCS: 70450; 71045; 72100; 72148; 74176; 80048; 80053; 80069; 80306 90; 81003; 82533 91; 82570; 82948; 83036; 83540; 83690; 83880; 84156; 84466; 84484; 85025; 85027; 85610; 85730; 87040; 87086; 93005; 93306; 99202; 99281; 99285; J0360; J1170; J1644; J1815; J2405; J2765; J7030; S0028

== ENCOUNTER 2018-01-05 21:11 | Inpatient (IN) | payer OTHER ==
[~2018-01-05] VITALS: Ht 180.3 cm; Wt 131.0 kg
[~2018-01-05 21:11] MED LIST changes: +HYDROCHLOROTH12.5 M3 PO; +NOVOLOG 10100 UNITS/ SC
[2018-01-05 22:14] LABS: HEMATOCRIT 22.2 % (38.0-50.0); HEMOGLOBIN 7.2 G/DL (12.5-16.6); MCH 31.4 PG (29.0-34.0); MCHC 32.4 G/DL (30.0-36.0); MCV 96.9 FL (86-99); PLATELET COUNT 288 K/uL (156-360); RBC DIS.WIDTH-CV 14.6 % (11.8-14.6); RBC DIS.WIDTH-SD 51.4 % (39-53); RED BLOOD COUNT 2.29 M/uL (4.00-5.50); WHITE BLOOD COUNT 10.4 K/uL (4.1-10.2)
[2018-01-05 22:29] LABS: CHLORIDE 114 mEq/L (99-109); POTASSIUM 4.4 mEq/L (3.7-5.4); SODIUM 145 mEq/L (136-147)
[2018-01-05 22:31] LABS: GLUCOSE 100 mg/dL (70-99)
[2018-01-05 22:35] LABS: GFR ESTIMATE (CALCULATED) 17 mL/min/ (58.99-99999)
[2018-01-05 22:36] LABS: UREA NITROGEN (BUN) 69 mg/dL (9-23)
[2018-01-05 22:37] LABS: TROP-I INTERPRETATION NEGATIVE; TROPONIN-I 0.03 ng/mL (0.0-0.30)
[2018-01-05 23:27] LABS: IMM.RETIC FRACTION 21.9 % (3-19); RETIC HGB EQUIVALENT 34.3 (28-36); RETICULOCYTE COUNT 2.1 % (0.5-1.8)
[2018-01-05 23:38] LABS: INTER. NORMALIZED RATIO 1.1
[2018-01-05 23:40] LABS: PTT 28.9 SEC (25-37)
[2018-01-06] VITALS (11 sets, daily range): BP systolic 130–190; BP diastolic 69–98
[2018-01-06] MEDS ORDERED: SYMBICORT60 INHALA1 IH (00:34)
[2018-01-06] MEDS ORDERED: LEVEMIR100 UNIT/2 SC (00:36)
[2018-01-06] MEDS ORDERED: LISINOPRIL10 MG PO (00:37)
[2018-01-06] MEDS ORDERED: GABAPENTIN100 MG PO (00:40)
[2018-01-06] MEDS ORDERED: HUMALOG100 UNIT/1 SC (00:41)
[2018-01-06 03:45] LABS: URIC ACID 8.1 mg/dL (3.1-9.2)
[2018-01-06 03:52] LABS: APPEARANCE CLEAR ((CLEAR)); BILIRUBIN NEGATIVE; BLOOD SMALL; COLOR STRAW ((YELLOW)); GLUCOSE (STRIP) 50; KETONES NEGATIVE; LEUKOCYTES NEGATIVE; NITRITE NEGATIVE; PROTEIN (STRIP) >=500; SPECIFIC GRAVITY 1.011 (1.000-1.030); UROBILINOGEN 0.2 MG/DL (0.2-1.0)
[2018-01-06 03:58] LABS: BACTERIA NONE SEEN /HPF; EPITHELIAL CELLS RARE /HPF; HYALINE CASTS 0-5 /LPF; MUCUS NONE SEEN /LPF; RED BLOOD CELLS 0-5 /HPF (0-5); WHITE BLOOD CELLS 0-5 /HPF (0-5)
[2018-01-06 06:47] LABS: BASOPHIL (%) 0.3 % (0-1); EOSINOPHIL (%) 6.7 % (0-5); EOSINOPHIL COUNT 0.7 K/uL (0-0.3); HEMATOCRIT 22.9 % (38.0-50.0); HEMOGLOBIN 7.1 G/DL (12.5-16.6); IMMATURE GRANULOCYTE (%) 0.3 % (0.0-0.7); LYMPHOCYTE (%) 15.5 % (15-42); LYMPHOCYTE COUNT 1.6 K/uL (1.0-2.8); MCH 30.2 PG (29.0-34.0); MCV 97.4 FL (86-99); MONOCYTE (%) 9.1 % (3-12); MONOCYTE COUNT 0.9 K/uL (0-0.8); NEUTROPHIL (%) 68.1 % (45-76); PLATELET COUNT 294 K/uL (156-360); RBC DIS.WIDTH-CV 14.6 % (11.8-14.6); RBC DIS.WIDTH-SD 51.3 % (39-53); RED BLOOD COUNT 2.35 M/uL (4.00-5.50); WHITE BLOOD COUNT 10.3 K/uL (4.1-10.2)
[2018-01-06 07:27] LABS: ALBUMIN 2.8 G/DL (3.2-4.8); ALKALINE PHOSPHATASE 113 IU/L (3-129); ALT (GPT) 45 IU/L (3-49); AST (GOT) 39 IU/L (2-34); CHLORIDE 112 MEQ/L (99-109); CREATININE 4.9 MG/DL (0.6-1.3); GFR ESTIMATE (CALCULATED) 17 mL/min/ (58.99-99999); POTASSIUM 4.5 MEQ/L (3.7-5.4); SODIUM 142 MEQ/L (136-147); TOTAL BILIRUBIN 0.2 MG/DL (0.0-1.0); TOTAL PROTEIN 5.7 G/DL (6.4-8.3); UREA NITROGEN (BUN) 62 mg/dL (9-23)
[2018-01-06 07:43] LABS: GLUCOSE 161 mg/dL (70-99)
[2018-01-07] VITALS (7 sets, daily range): BP systolic 129–181; BP diastolic 60–90
[2018-01-07 10:37] LABS: BASOPHIL (%) 0.3 % (0-1); EOSINOPHIL (%) 3.6 % (0-5); EOSINOPHIL COUNT 0.4 K/uL (0-0.3); HEMATOCRIT 26.3 % (38.0-50.0); HEMOGLOBIN 8.4 G/DL (12.5-16.6); IMMATURE GRANULOCYTE (%) 0.3 % (0.0-0.7); LYMPHOCYTE (%) 8.6 % (15-42); MCH 30.1 PG (29.0-34.0); MCHC 31.9 G/DL (30.0-36.0); MCV 94.3 FL (86-99); MONOCYTE (%) 6.2 % (3-12); MONOCYTE COUNT 0.7 K/uL (0-0.8); NEUTROPHIL COUNT 9.4 K/uL (1.8-6.4); PLATELET COUNT 308 K/uL (156-360); RBC DIS.WIDTH-CV 14.5 % (11.8-14.6); RBC DIS.WIDTH-SD 49.9 % (39-53); RED BLOOD COUNT 2.79 M/uL (4.00-5.50); WHITE BLOOD COUNT 11.6 K/uL (4.1-10.2)
[2018-01-07 11:07] LABS: CHLORIDE 108 MEQ/L (99-109); CREATININE 5.2 MG/DL (0.6-1.3); GFR ESTIMATE (CALCULATED) 16 mL/min/ (58.99-99999); GLUCOSE 360 mg/dL (70-99); PHOSPHORUS 5.1 mg/dL (2.5-4.9); POTASSIUM 4.6 MEQ/L (3.7-5.4); SODIUM 137 MEQ/L (136-147); UREA NITROGEN (BUN) 70 mg/dL (9-23)
[2018-01-07 15:22] LABS: TYPE OF FLUID PLEURAL
[2018-01-07 15:48] LABS: APPEARANCE SL. HAZY-YELLOW; BODY FLUID EOSINOPHILS 1 % (0-25); BODY FLUID GLUCOSE 370 MG/DL; BODY FLUID LDH 107 IU/L; BODY FLUID RBC'S < 1000 /MM^3 (0-100); BODY FLUID WBC'S 242 /MM^3 (0-500); COMMENT MANY MACROPHAGES SEEN; MONONUCLEAR WBC'S 96 %; POLYNUCLEAR WBC'S 3 % (0-25)
[2018-01-07 15:49] LABS: BODY FLUID PROTEIN < 3.0 G/DL
[2018-01-08] VITALS (7 sets, daily range): BP systolic 132–187; BP diastolic 65–100
[2018-01-08 06:05] LABS: ALBUMIN 2.4 G/DL (3.2-4.8); CHLORIDE 109 MEQ/L (99-109); CREATININE 5.4 MG/DL (0.6-1.3); GFR ESTIMATE (CALCULATED) 15 mL/min/ (58.99-99999); GLUCOSE 147 mg/dL (70-99); PHOSPHORUS 5.4 mg/dL (2.5-4.9); POTASSIUM 4.1 MEQ/L (3.7-5.4); SODIUM 138 MEQ/L (136-147); UREA NITROGEN (BUN) 73 mg/dL (9-23)
[2018-01-09 03:12] VITALS: BP 144/75
[2018-01-09 06:19] LABS: BASOPHIL (%) 0.2 % (0-1); EOSINOPHIL (%) 9.1 % (0-5); EOSINOPHIL COUNT 0.8 K/uL (0-0.3); HEMATOCRIT 26.3 % (38.0-50.0); HEMOGLOBIN 8.3 G/DL (12.5-16.6); IMMATURE GRANULOCYTE (%) 0.4 % (0.0-0.7); LYMPHOCYTE (%) 15.4 % (15-42); LYMPHOCYTE COUNT 1.4 K/uL (1.0-2.8); MCH 29.5 PG (29.0-34.0); MCHC 31.6 G/DL (30.0-36.0); MCV 93.6 FL (86-99); MONOCYTE (%) 9.5 % (3-12); MONOCYTE COUNT 0.9 K/uL (0-0.8); NEUTROPHIL (%) 65.4 % (45-76); NEUTROPHIL COUNT 5.9 K/uL (1.8-6.4); PLATELET COUNT 321 K/uL (156-360); RBC DIS.WIDTH-CV 14.1 % (11.8-14.6); RBC DIS.WIDTH-SD 47.8 % (39-53); RED BLOOD COUNT 2.81 M/uL (4.00-5.50)
[2018-01-09 06:42] LABS: ALBUMIN 2.4 G/DL (3.2-4.8); CHLORIDE 109 MEQ/L (99-109); CREATININE 5.4 MG/DL (0.6-1.3); GFR ESTIMATE (CALCULATED) 15 mL/min/ (58.99-99999); GLUCOSE 145 mg/dL (70-99); POTASSIUM 4.3 MEQ/L (3.7-5.4); SODIUM 140 MEQ/L (136-147); UREA NITROGEN (BUN) 72 mg/dL (9-23)
[2018-01-09 06:43] LABS: ALBUMIN 2.4 G/DL (3.2-4.8); CHLORIDE 109 MEQ/L (99-109); CREATININE 5.3 MG/DL (0.6-1.3); GFR ESTIMATE (CALCULATED) 15 mL/min/ (58.99-99999); GLUCOSE 145 mg/dL (70-99); PHOSPHORUS 5.7 mg/dL (2.5-4.9); POTASSIUM 4.3 MEQ/L (3.7-5.4); SODIUM 140 MEQ/L (136-147); UREA NITROGEN (BUN) 72 mg/dL (9-23)
[2018-01-09 06:58] VITALS: BP 146/67
[2018-01-09 11:00] VITALS: BP 163/74
[2018-01-09 15:30] VITALS: BP 175/79
[2018-01-10 00:10] VITALS: BP 150/71
[2018-01-10 06:45] VITALS: BP 136/66
[2018-01-10 06:55] LABS: HEMATOCRIT 25.7 % (38.0-50.0); HEMOGLOBIN 8.3 G/DL (12.5-16.6); MCH 30.4 PG (29.0-34.0); MCHC 32.3 G/DL (30.0-36.0); MCV 94.1 FL (86-99); PLATELET COUNT 337 K/uL (156-360); RBC DIS.WIDTH-CV 14.3 % (11.8-14.6); RBC DIS.WIDTH-SD 48.6 % (39-53); RED BLOOD COUNT 2.73 M/uL (4.00-5.50); WHITE BLOOD COUNT 10.5 K/uL (4.1-10.2)
[2018-01-10 07:21] LABS: ALBUMIN 2.5 G/DL (3.2-4.8); CHLORIDE 107 MEQ/L (99-109); CREATININE 5.7 MG/DL (0.6-1.3); GFR ESTIMATE (CALCULATED) 14 mL/min/ (58.99-99999); GLUCOSE 245 mg/dL (70-99); PHOSPHORUS 5.6 mg/dL (2.5-4.9); POTASSIUM 4.4 MEQ/L (3.7-5.4); SODIUM 140 MEQ/L (136-147); UREA NITROGEN (BUN) 79 mg/dL (9-23)
[2018-01-10 15:47] VITALS: BP 132/63
[2018-01-10 21:25] VITALS: BP 121/61
[2018-01-10 22:55] VITALS: BP 130/67
[2018-01-11 06:49] LABS: HEMATOCRIT 25.8 % (38.0-50.0); HEMOGLOBIN 8.4 G/DL (12.5-16.6); MCH 30.9 PG (29.0-34.0); MCHC 32.6 G/DL (30.0-36.0); MCV 94.9 FL (86-99); PLATELET COUNT 338 K/uL (156-360); RBC DIS.WIDTH-CV 14.3 % (11.8-14.6); RBC DIS.WIDTH-SD 49.1 % (39-53); RED BLOOD COUNT 2.72 M/uL (4.00-5.50)
[2018-01-11 07:10] VITALS: BP 143/73
[2018-01-11 07:18] LABS: ALBUMIN 2.5 G/DL (3.2-4.8); CHLORIDE 108 MEQ/L (99-109); CREATININE 5.6 MG/DL (0.6-1.3); GFR ESTIMATE (CALCULATED) 15 mL/min/ (58.99-99999); GLUCOSE 199 mg/dL (70-99); PHOSPHORUS 6.1 mg/dL (2.5-4.9); POTASSIUM 4.1 MEQ/L (3.7-5.4); SODIUM 140 MEQ/L (136-147); UREA NITROGEN (BUN) 74 mg/dL (9-23)
[2018-01-11] MEDS ORDERED: AUGMENTIN875 MG PO (11:19)
[2018-01-11] MEDS ORDERED: CALCIUM ACETAT667 MG PO (11:19)
[2018-01-11] MEDS ORDERED: OXYCODONE HCL5 MG PO (11:19)
[2018-01-11] MEDS ORDERED: CARVEDILOL25 MG PO (11:19)
[2018-01-11] MEDS ORDERED: FUROSEMIDE80 MG PO (11:19)
[2018-01-11] MEDS ORDERED: NIFEDIPINE ER30 MG PO (11:19)
== END 2018-01-11 13:57 | disposition home health service (06) | DRG 981 ==
LOC: EME 21:11 → 5EAST 01-06 02:05 → EDOF 01-06 02:05 → ENRESERV 01-06 02:09 → 5EAST 01-06 04:30
PROVIDERS: Emergency Medicine Emergency Medical Services; Hospitalist; Internal Medicine; Surgery
PROC: 30233N1 Transfusion of Nonautologous Red Blood Cells into Peripheral Vein, Percutaneous Approach (ICD-10-PCS; 2018-01-06)
PROC: 0W9B3ZZ Drainage of Left Pleural Cavity, Percutaneous Approach (ICD-10-PCS; 2018-01-07)
PROC: 0WHG43Z Insertion of Infusion Device into Peritoneal Cavity, Percutaneous Endoscopic Approach (ICD-10-PCS; principal; 2018-01-10)
DX: J18.9 Pneumonia, unspecified organism (principal); N17.9 Acute kidney failure, unspecified; I12.0 Hypertensive chronic kidney disease with stage 5 chronic kidney disease or end stage renal disease; E10.21 Type 1 diabetes mellitus with diabetic nephropathy; E10.22 Type 1 diabetes mellitus with diabetic chronic kidney disease; N18.6 End stage renal disease; E87.70 Fluid overload, unspecified; J90 Pleural effusion, not elsewhere classified; D50.9 Iron deficiency anemia, unspecified; D63.1 Anemia in chronic kidney disease; N25.81 Secondary hyperparathyroidism of renal origin; E10.649 Type 1 diabetes mellitus with hypoglycemia without coma; E10.42 Type 1 diabetes mellitus with diabetic polyneuropathy; K31.84 Gastroparesis; R04.0 Epistaxis; R09.02 Hypoxemia; I95.1 Orthostatic hypotension; E27.40 Unspecified adrenocortical insufficiency; E55.9 Vitamin D deficiency, unspecified; E66.01 Morbid (severe) obesity due to excess calories; E78.5 Hyperlipidemia, unspecified; K21.9 Gastro-esophageal reflux disease without esophagitis; G89.29 Other chronic pain; M54.2 Cervicalgia; M54.5 Low back pain; R19.7 Diarrhea, unspecified; F32.9 Major depressive disorder, single episode, unspecified; F41.9 Anxiety disorder, unspecified; Z82.49 Family history of ischemic heart disease and other diseases of the circulatory system; Z83.3 Family history of diabetes mellitus; Z85.118 Personal history of other malignant neoplasm of bronchus and lung; Z86.61 Personal history of infections of the central nervous system; Z87.891 Personal history of nicotine dependence
CPT/HCPCS: 70450; 71046; 71250; 72100; 72125; 72170; 76942; 80048; 80048 91; 80069; 80076; 81003; 82040; 82945; 82948; 83605; 83615 91; 83735; 83880; 84100; 84157; 84376 90; 84484; 84550; 85025; 85027; 85046; 85610; 85730; 86850; 86860; 86870; 86880; 86900; 86901; 86920; 87040; 87070; 87075; 87106; 87205; 87449; 87493; 87502; 87506; 89051; 93005; 93970; 94640; 94640 76; 94799; 97530 GP; 99202; 99281; 99285; C1750; J0295; J0360; J0456; J0690; J0881; J1644; J1815; J1940; J2270; J7050; P9016; S0020

== ENCOUNTER 2018-02-07 09:39 | Day surgery (SDC) | payer OTHER ==
[~2018-02-07] VITALS: Ht 180.3 cm; Wt 117.9 kg
[~2018-02-07 09:39] MED LIST changes: +AUGMENTIN875 MG PO; +CALCIUM ACETAT667 MG PO; +CARVEDILOL25 MG PO; +SYMBICORT60 INHALA1 IH
[2018-02-07] MEDS ORDERED: OMEPRAZOLE20 MG PO (10:11)
[2018-02-07 10:17] VITALS: BP 179/96
[2018-02-07 10:46] LABS: HEMATOCRIT 32.6 % (38.0-50.0); HEMOGLOBIN 10.5 G/DL (12.5-16.6); MCH 29.4 PG (29.0-34.0); MCHC 32.2 G/DL (30.0-36.0); MCV 91.3 FL (86-99); PLATELET COUNT 302 K/uL (156-360); RBC DIS.WIDTH-CV 13.4 % (11.8-14.6); RBC DIS.WIDTH-SD 45.1 % (39-53); RED BLOOD COUNT 3.57 M/uL (4.00-5.50); WHITE BLOOD COUNT 9.5 K/uL (4.1-10.2)
[2018-02-07 11:03] LABS: CHLORIDE 106 MEQ/L (99-109); CREATININE 4.9 MG/DL (0.6-1.3); GFR ESTIMATE (CALCULATED) 17 mL/min/ (58.99-99999); GLUCOSE 119 mg/dL (70-99); POTASSIUM 4.5 MEQ/L (3.7-5.4); SODIUM 142 MEQ/L (136-147); UREA NITROGEN (BUN) 52 mg/dL (9-23)
[2018-02-07] MEDS ORDERED: NORCO 5/3251 TABLET PO (12:11)
[2018-02-07 13:29] VITALS: BP 137/84
[2018-02-07 14:15] VITALS: BP 130/78
== END 2018-02-07 14:22 | disposition home or self-care (01) ==
LOC: SDC
PROVIDERS: Surgery
PROC: 0JH60WZ Insertion of Totally Implantable Vascular Access Device into Chest Subcutaneous Tissue and Fascia, Open Approach (ICD-10-PCS; principal; 2018-02-07)
DX: Z45.2 Encounter for adjustment and management of vascular access device (principal); I87.8 Other specified disorders of veins; I12.0 Hypertensive chronic kidney disease with stage 5 chronic kidney disease or end stage renal disease; N18.6 End stage renal disease; E11.22 Type 2 diabetes mellitus with diabetic chronic kidney disease; E11.43 Type 2 diabetes mellitus with diabetic autonomic (poly)neuropathy; K31.84 Gastroparesis; Z85.118 Personal history of other malignant neoplasm of bronchus and lung; Z79.4 Long term (current) use of insulin; R94.31 Abnormal electrocardiogram [ECG] [EKG]
CPT/HCPCS: 71045; 80048; 82948; 85027; C1751; C1769; J0690; J1170; J1885; J2250; J2405; J2710; J3010

== ENCOUNTER 2018-04-09 13:10 | Emergency (ER) | payer OTHER ==
[~2018-04-09] VITALS: Ht 180.3 cm; Wt 117.0 kg
[2018-04-09 17:08] LABS: HEMOGLOBIN 9.7 G/DL (12.5-16.6); MCH 30.5 PG (29.0-34.0); MCHC 33.4 G/DL (30.0-36.0); MCV 91.2 FL (86-99); PLATELET COUNT 332 K/uL (156-360); RBC DIS.WIDTH-CV 16.5 % (11.8-14.6); RBC DIS.WIDTH-SD 55.1 % (39-53); RED BLOOD COUNT 3.18 M/uL (4.00-5.50)
[2018-04-09 17:17] LABS: CHLORIDE 104 mEq/L (99-109); POTASSIUM 3.8 mEq/L (3.7-5.4); SODIUM 141 mEq/L (136-147)
[2018-04-09 17:18] LABS: GLUCOSE 172 mg/dL (70-99)
[2018-04-09 17:22] LABS: GFR ESTIMATE (CALCULATED) 13 mL/min/ (58.99-99999)
[2018-04-09 17:23] LABS: UREA NITROGEN (BUN) 44 mg/dL (9-23)
[2018-04-09] MEDS ORDERED: DOXYCYCLINE MO100 MG PO (18:20)
[2018-04-09 19:32] VITALS: BP 195/120
== END 2018-04-09 19:11 | disposition home or self-care (01) ==
LOC: EME 13:10
PROVIDERS: Physician Assistant
DX: E11.621 Type 2 diabetes mellitus with foot ulcer (principal); L97.519 Non-pressure chronic ulcer of other part of right foot with unspecified severity; E11.22 Type 2 diabetes mellitus with diabetic chronic kidney disease; I12.9 Hypertensive chronic kidney disease with stage 1 through stage 4 chronic kidney disease, or unspecified chronic kidney disease; N18.9 Chronic kidney disease, unspecified; Z79.4 Long term (current) use of insulin; Z99.2 Dependence on renal dialysis; F32.9 Major depressive disorder, single episode, unspecified; K21.9 Gastro-esophageal reflux disease without esophagitis; F41.9 Anxiety disorder, unspecified; Z85.118 Personal history of other malignant neoplasm of bronchus and lung; Z87.891 Personal history of nicotine dependence
CPT/HCPCS: 73630; 80048; 82948; 85027; 99281; 99284

== ENCOUNTER 2018-06-16 00:05 | Emergency (ER) | payer OTHER ==
[~2018-06-16] VITALS: Ht 175.3 cm; Wt 119.7 kg
[~2018-06-16 00:05] MED LIST changes: +DOXYCYCLINE MO100 MG PO
[2018-06-16 00:43] LABS: HEMATOCRIT 33.8 % (38.0-50.0); HEMOGLOBIN 11.3 G/DL (12.5-16.6); MCH 30.9 PG (29.0-34.0); MCHC 33.4 G/DL (30.0-36.0); MCV 92.3 FL (86-99); PLATELET COUNT 328 K/uL (156-360); RBC DIS.WIDTH-CV 14.2 % (11.8-14.6); RBC DIS.WIDTH-SD 47.8 % (39-53); RED BLOOD COUNT 3.66 M/uL (4.00-5.50); WHITE BLOOD COUNT 7.2 K/uL (4.1-10.2)
[2018-06-16 00:52] LABS: CHLORIDE 104 mEq/L (99-109); POTASSIUM 3.4 mEq/L (3.7-5.4); SODIUM 142 mEq/L (136-147)
[2018-06-16 00:53] LABS: GLUCOSE 191 mg/dL (70-99)
[2018-06-16 00:57] LABS: CREATININE 6.1 mg/dL (0.6-1.3); GFR ESTIMATE (CALCULATED) 13 mL/min/ (58.99-99999)
[2018-06-16 00:58] LABS: UREA NITROGEN (BUN) 37 mg/dL (9-23)
[2018-06-16 01:05] LABS: TROP-I INTERPRETATION NEGATIVE; TROPONIN-I 0.03 ng/mL (0.0-0.30)
[2018-06-16 06:31] VITALS: BP 209/120
== END 2018-06-16 06:32 | disposition home or self-care (01) ==
LOC: EME 00:05
PROVIDERS: Physician Assistant
DX: S06.0X0A Concussion without loss of consciousness, initial encounter (principal); I10 Essential (primary) hypertension; V49.60XA Unspecified car occupant injured in collision with unspecified motor vehicles in traffic accident, initial encounter; J90 Pleural effusion, not elsewhere classified; R94.31 Abnormal electrocardiogram [ECG] [EKG]; E11.9 Type 2 diabetes mellitus without complications; Z79.4 Long term (current) use of insulin; Z85.118 Personal history of other malignant neoplasm of bronchus and lung; Z87.891 Personal history of nicotine dependence
CPT/HCPCS: 70450; 70496; 70498; 71046; 80048; 81003; 84484; 85027; 93005; 99281; 99285; J1200; J2765